=== PATIENT | male | born 1970 | race Caucasian/White ===

== ENCOUNTER 2017-02-09 10:43 | Emergency (ER) | payer OTHER ==
[2017-02-09 10:57] VITALS: RESP 16
--- NOTE | 2017-02-09 12:11 | XR ---
EXAMINATION TYPE: XR cervical spine comp DATE OF EXAM: 02/09/2017 TECHNIQUE: Frontal, lateral, oblique, and open mouth view of the cervical spine are obtained. HISTORY: Pain neck pain after injury COMPARISON: None FINDINGS: The cervical spine is visualized in its entirety from C1 thru the top of T1 level, there i s reversal of normal cervical curvature without evidence of acute fracture or dislocation. The pre-v ertebral soft tissue appears within normal limits. The C1-C2 articulation is within normal limits on the open mouth view. Vertebral body heights are maintained. There is moderate to severe multilevel spurring and disc space narrowing from C3-C4 through C7-T1 level. The oblique images are within normal limits. Overlying sof t tissue is unremarkable. IMPRESSION: No acute fracture or dislocation is seen in the cervical spine. Moderate to severe multi level degenerative change quite pronounced for patient's chronologic age.
--- NOTE | 2017-02-09 12:13 | XR ---
EXAMINATION TYPE: XR lumbosacral spine min 4V DATE OF EXAM: 02/09/2017 CLINICAL HISTORY: Low back pain after injury. TECHNIQUE: Frontal, lateral, and oblique images of the lumbar spine are obtained. COMPARISON: MRI lumbar spine November 22, 2013 FINDINGS: There are 5 lumbar type vertebral bodies identified. The lumbar spine redemonstrate sligh t dextroconvex scoliotic curvature centered in mid lumbar spine without evidence of acute displaced f racture. There is mild to moderate height loss at superior L2 endplate, this is at site of prior prom inent Schmorl node but this is more prominent versus MRI still favor chronic etiology. Remainder of v ertebral body heights and disc space heights are maintained. Mild multilevel anterior spurring is see n. Facet arthropathy lower lumbar levels is appreciated. Oblique images are within normal limits. Ove rlying soft tissue is unremarkable. IMPRESSION: Increasing mild to moderate compression deformity superior anterior L2 endplate is favore d chronic in etiology.
--- NOTE | 2017-02-09 12:26 | ED ---
General Adult HPI - General Chief complaint: Back Pain/Injury Stated complaint: back and neck pain Time Seen by Provider: 02/09/17 11:07 Source: patient, RN notes reviewed Mode of arrival: ambulatory Limitations: no limitations - History of Present Illness Initial comments: 46-year-old male presents for evaluation of neck and low back pain. Patient was carrying a a mattress and fell backwards onto his tailbone, he states the mattress to the time of his head and he is now complaining of neck pain. Patient denies any loss of consciousness. He is not on any blood thinners. Patient took one of his girlfriend's [place] last night with relief of his pain. He denies any changes to his daily. He denies any shooting pain down his arms or legs. Denies any bowel or bladder incontinence. Patient has no significant medical history and is not on any medication. - Related Data Home Medications Medication Instructions Recorded Confirmed HYDROcodone/APAP 10-325MG [[place] 1 tab PO ONCE PRN 02/09/17 02/09/17 10-325] Ibuprofen [Motrin] 400 mg PO Q6HR PRN 02/09/17 02/09/17 Multivitamins, Thera [Multivitamin 1 tab PO DAILY 02/09/17 02/09/17 (formulary)] Previous Rx's Medication Instructions Recorded HYDROcodone/APAP 5-325MG [[place] 1 tab PO Q6HR PRN #12 tab 02/09/17 5-325] Ibuprofen [Motrin] 600 mg PO Q8HR PRN #24 tab 02/09/17 Allergies Allergy/AdvReac Type Severity Reaction Status Date / Time tramadol HCl [From Ultram] AdvReac Itching Verified 02/09/17 11:50 Review of Systems ROS Statement: Those systems with pertinent positive or pertinent negative responses have been documented in the HPI. ROS Other: All systems not noted in ROS Statement are negative. Past Medical History Past Medical History: No Reported History Additional Past Medical History / Comment(s): chronic back pain, previous cocaine, heroin abuse History of Any Multi-Drug Resistant Organisms: None Reported Past Surgical History: Hernia Repair, Orthopedic Surgery Additional Past Surgical History / Comment(s): Right inguinal hernia repair, calcaneal fracture repair bilaterally Past Anesthesia/Blood Transfusion Reactions: No Reported Reaction Past Psychological History: No Psychological Hx Reported, Anxiety, Bipolar, Depression Smoking Status: Current every day smoker Past Alcohol Use History: Rare Past Drug Use History: None Reported - Past Family History Father Additional Family Medical History / Comment(s): Dad is alive at age 81 with hearing problems. Mother Additional Family Medical History / Comment(s): Mother at age 73 with history of multiple CVAs and diabetes. Brother(s) Additional Family Medical History / Comment(s): Ration has 3 brothers and one half-brother. One has history of HIV, one has been in [facility], one has history of rheumatic fever and bipolar. He states all brothers have history of substance abuse. Sister(s) Additional Family Medical History / Comment(s): Patient had 4 sisters. One at age 37 and had cerebral palsy and muscular dystrophy. One sister from alcoholism and drug abuse. He does not have any children. General Exam Limitations: no limitations General appearance: alert, in no apparent distress Head exam: Present: atraumatic, normocephalic Eye exam: Present: normal appearance, PERRL ENT exam: Present: normal exam, mucous membranes moist, TM's normal bilaterally Neck exam: Present: tenderness (Tenderness on the left cervical paraspinal muscles. No bony tenderness.), full ROM Respiratory exam: Present: normal lung sounds bilaterally. Absent: respiratory distress Cardiovascular Exam: Present: regular rate, normal rhythm GI/Abdominal exam: Present: soft. Absent: distended Extremities exam: Present: normal inspection, full ROM, tenderness (Tenderness at the left paraspinal muscles and over the coccyx. No external signs of trauma ) Back exam: Present: full ROM, tenderness, paraspinal tenderness Neurological exam: Present: alert, oriented X3, CN II-XII intact. Absent: motor sensory deficit Psychiatric exam: Present: normal affect, normal mood Skin exam: Present: warm, dry Course Vital Signs 02/09/17 10:54 Temperature 98.5 F Pulse Rate 79 Respiratory 16 Rate Blood Pressure 119/79 O2 Sat by Pulse 97 Oximetry Medical Decision Making - Medical Decision Making Procedure male presenting with low back pain and neck pain after minor trauma. Exam is unremarkable with exception of some minor tenderness to palpation over the left cervical paraspinal muscles and left lumbar spine. No concerning findings on neurologic examination. X-ray shows no acute fracture subluxation of the cervical or lumbar spine. No pain medication and encouraged follow-up with his primary care physician. Disposition Clinical Impression: Mechanical back pain, Strain of lumbar region Disposition: HOME SELF-CARE Condition: Good Instructions: Acute Low Back Pain (ED) Prescriptions: HYDROcodone/APAP 5-325MG [[place] 5-325] 1 tab PO Q6HR PRN #12 tab PRN Reason: Pain Ibuprofen [Motrin] 600 mg PO Q8HR PRN #24 tab PRN Reason: Pain Referrals: None,Stated [Primary Care Provider] - 1-2 days Gabby Butler MD [STAFF PHYSICIAN] - 1-2 days
[2017-02-09 12:54] VITALS: BP 121/78; PULSE 90; TEMP 97.9
== END 2017-02-09 12:54 | disposition home or self-care (01) ==
LOC: EC 10:43
DX: S39.012A Strain of muscle, fascia and tendon of lower back, initial encounter (principal); M54.2 Cervicalgia; F17.200 Nicotine dependence, unspecified, uncomplicated; Z88.5 Allergy status to narcotic agent; Z79.899 Other long term (current) drug therapy; W01.0XXA Fall on same level from slipping, tripping and stumbling without subsequent striking against object, initial encounter; Y93.89 Activity, other specified
CPT/HCPCS: 72050; 72110; 99283

== ENCOUNTER → 2017-03-29 | Outpatient (CLI) | payer OTHER ==
--- NOTE | 2017-03-29 13:24 | MR ---
EXAMINATION TYPE: MR cspine/lspine wo con DATE OF EXAM: 03/29/2017 COMPARISON: Prior cervical and lumbar spine dated 11/22/2013 HISTORY: Neck and low back pain TECHNIQUE: Multiplanar, multisequence imaging of the lumbar and cervical spine is performed without I V contrast. FINDINGS: Cervical spine: Suspect there is a spinal curvature in the cervical spine and thoracic spine. Cervica l vertebral bodies show stable height, alignment, and bone marrow signal. Endplate discogenic marrow signal change, underlying lordosis, loss of disc height and signal at the intervertebral levels is ag ain noted as on previous exam. Minimal anterolisthesis grade 1 C7-T1. Cervical cord signal is maintai rosalie. C2-3: Small central posterior disc herniation causes slight anterior mass effect on the thecal sac. N o significant foraminal encroachment or spinal stenosis C3-4: Bilateral foraminal encroachment due to lateral extension of endplate disc complexes, posterior extension of endplate disc complex results in mild to moderate central stenosis. There is anterior m ass effect on the thecal sac. There may be cord contact due to posterior central disc herniation as o n prior. C4-5: Foraminal encroachment is present left greater than right due to lateral extension of endplate disc complex. Posterior extension of endplate disc complex slightly eccentric towards the left causin g anterolateral mass effect on the thecal sac, only mild stenosis. C5-6: Right posterior paracentral disc herniation causes anterolateral mass effect on the thecal sac and there is some neural foraminal encroachment on the right greater than left due to lateral extensi on endplate disc complex. C6-7: Left-sided foraminal encroachment greater than right is present due to lateral extension endpla te disc complex. No significant central stenosis. C6-7: Listhesis contributes with lateral extension endplate disc complex to cause bilateral foraminal encroachment. No significant central stenosis. IMPRESSION: Degenerative disc disease, multilevel foraminal encroachment as described and similar to prior exam. Lumbar spine MRI: Sagittal images of the lumbar spine show vertebral body heights and alignment to [place] stable, there is a dextroscoliosis centered at the lower lumbar spine. The intervertebral discs demonstrate stable appearance, there is multilevel spondylosis with endplate discogenic marrow signal change and loss of disc height and signal at the intervertebral levels especially L3-4, L2-3 and L1- 2, Schmorl's node is present at the superior endplate of L2 as on prior exam. Interval formation of S chmorl's node superior endplate L3.. The conus medullaris is normal in position and signal. Axial images show no focal disc disease, or foraminal encroachment at L5-S1. There is no significant central stenosis. Facet arthropathy changes are present L4-5: There is no spinal canal stenosis, neural foraminal narrowing, or evidence of nerve root compro mise. L3-4: Posterior broad-based disc bulge causes mild anterior mass effect on the thecal sac. No signifi cant central stenosis or foraminal encroachment. L2-3: Broad-based posterior disc bulge causes mild anterior mass effect on the thecal sac. No signifi cant foraminal encroachment or central stenosis. Mild anterior wedging of L2 vertebral body is stable . L1-2: Broad-based posterior disc bulge causes mild anterior mass effect on the thecal sac. No signifi cant central stenosis or foraminal encroachment T12-L1: Within normal limits IMPRESSION: Mild degenerative disc disease. Spinal curvature is again noted. Additional findings abov e.
== END | disposition home or self-care (01) ==
LOC: RADMRIMAIN 12:14
PROVIDERS: ATTEND Internal Medicine
DX: M50.30 Other cervical disc degeneration, unspecified cervical region (principal); M51.36 Other intervertebral disc degeneration, lumbar region
CPT/HCPCS: 72141; 72148

== ENCOUNTER 2017-06-01 16:40 | Inpatient (IN) | payer MEDICAID, OTHER ==
--- NOTE | 2017-06-01 17:37 | ED ---
Psych HPI - General Chief Complaint: Psychiatric Symptoms Stated Complaint: Mental Health Time Seen by Provider: 06/01/17 17:04 Source: patient, RN notes reviewed, old records reviewed Mode of arrival: ambulatory - History of Present Illness Initial Comments: 47-year-old male recently admitted to 3 . chief complaint of worsening suicidal thoughts, and paranoia. Patient reports that he was discharged and has been taking his medications. Patient reports that since then he has had increased nightmares, resulting from PTSD. Patient has been having difficulty sleeping. He reports he wakes up with severe nightmares. Patient states that he's had thoughts of going to his friend's house whom he knows has a lot of guns. He reports that he wants to go over there and take a gun and shoot himself. Patient states that he also occasionally hears voices and sees " shadow people". Patient reports that he lives by himself. He reports that his neighbor encouraged him to come here she felt like he was just not acting appropriate. Patient reports that he has followed up with [facility] since being discharged. He states that he has done his initial intake. Heme reports that he called them prior to coming here. - Related Data Home Medications Medication Instructions Recorded Confirmed Buprenorphine HCl/Naloxone HCl 0.25 film SL HS@2200 PRN 05/21/17 06/01/17 [Suboxone 8 mg-2 mg Sl Film] Buprenorphine HCl/Naloxone HCl 1 film SL BID@0900,1800 05/21/17 06/01/17 [Suboxone 8 mg-2 mg Sl Film] Ibuprofen [Motrin] 800 mg PO BID@0900,1800 05/21/17 06/01/17 Ibuprofen [Motrin] 800 mg PO DAILY PRN 05/21/17 06/01/17 Multivitamins, Thera [Multivitamin 1 tab PO DAILY 05/21/17 06/01/17 (formulary)] tiZANidine [Zanaflex] 4 mg PO BID PRN 05/21/17 06/01/17 HYDROcodone/APAP 5-325MG [[place] 1 tab PO Q8H PRN 06/01/17 06/01/17 5-325] Previous Rx's Medication Instructions Recorded DULoxetine HCL [Cymbalta] 60 mg PO DAILY #30 capsule. 05/25/17 Nicotine 14Mg/24Hr Patch [Habitrol] 1 patch TRANSDERM Q24H #30 patch 05/25/17 Prazosin [Minipress] 1 mg PO HS #30 cap 05/25/17 QUEtiapine [SEROquel] 300 mg PO HS #90 tab 05/25/17 clonazePAM [KlonoPIN] 1 mg PO BID PRN #6 tab 05/25/17 Allergies Allergy/AdvReac Type Severity Reaction Status Date / Time tramadol HCl [From Ultram] AdvReac Itching Verified 06/01/17 17:39 Review of Systems ROS Statement: Those systems with pertinent positive or pertinent negative responses have been documented in the HPI. ROS Other: All systems not noted in ROS Statement are negative. Past Medical History Past Medical History: No Reported History Additional Past Medical History / Comment(s): chronic back pain, previous cocaine, heroin abuse History of Any Multi-Drug Resistant Organisms: None Reported Past Surgical History: Hernia Repair, Orthopedic Surgery Additional Past Surgical History / Comment(s): Right inguinal hernia repair, calcaneal fracture repair bilaterally Past Anesthesia/Blood Transfusion Reactions: No Reported Reaction Past Psychological History: Anxiety, Bipolar, Depression, PTSD Smoking Status: Current every day smoker Past Alcohol Use History: Rare Past Drug Use History: None Reported - Past Family History Father Additional Family Medical History / Comment(s): Dad is alive at age 81 with hearing problems. Mother Additional Family Medical History / Comment(s): Mother at age 73 with history of multiple CVAs and diabetes. Brother(s) Additional Family Medical History / Comment(s): Ration has 3 brothers and one half-brother. One has history of HIV, one has been in longterm, one has history of rheumatic fever and bipolar. He states all brothers have history of substance abuse. Sister(s) Additional Family Medical History / Comment(s): Patient had 4 sisters. One at age 37 and had cerebral palsy and muscular dystrophy. One sister from alcoholism and drug abuse. He does not have any children. General Exam - General Exam Comments Initial Comments: This is a 47-year-old male. No acute distress. Limitations: no limitations General appearance: alert, in no apparent distress Head exam: Present: atraumatic, normocephalic, normal inspection Eye exam: Present: normal appearance, PERRL, EOMI. Absent: scleral icterus, conjunctival injection, periorbital swelling ENT exam: Present: normal exam, mucous membranes moist Neck exam: Present: normal inspection. Absent: tenderness, meningismus, lymphadenopathy Respiratory exam: Present: normal lung sounds bilaterally. Absent: respiratory distress, wheezes, rales, rhonchi, stridor Cardiovascular Exam: Present: regular rate, normal rhythm, normal heart sounds. Absent: systolic murmur, diastolic murmur, rubs, gallop, clicks GI/Abdominal exam: Present: soft, normal bowel sounds. Absent: distended, tenderness, guarding, rebound, rigid Extremities exam: Present: normal inspection, full ROM, normal capillary refill. Absent: tenderness, pedal edema, joint swelling, calf tenderness Back exam: Present: normal inspection Neurological exam: Present: alert, oriented X3, CN II-XII intact Psychiatric exam: Present: depressed, flat affect, suicidal ideation (Patient reports he's had increased suicidal thoughts. He reports he will go over to his neighbor's house whom has a gun and wants to shoot himself.). Absent: normal affect, normal mood Skin exam: Present: warm, dry, intact, normal color. Absent: rash Course Vital Signs 06/01/17 17:05 Temperature 98.1 F Pulse Rate 78 Respiratory 20 Rate Blood Pressure 104/63 O2 Sat by Pulse 100 Oximetry Medical Decision Making - Medical Decision Making 47-year-old male with chief complaint of suicidal ideation. He also reports he' s had increased paranoia, hearing voices. Patient does not respond to any internal stimuli on exam itself. He does report that if he goes home he feels like he would take his friend's gun and shoot himself. Patient has medically clear. Patient was evaluated by EPS. Patient will be admitted to the hospital for inpatient psychiatric treatment. Disposition Clinical Impression: Suicidal ideation, Post traumatic stress disorder (PTSD), Paranoia Disposition: ADMITTED IP TO THIS HOSP Condition: Stable Referrals: Ruthy David MD [Primary Care Provider] - 1-2 days Time of Disposition: 19:18
[2017-06-01] MEDS ORDERED: MAGNESIUM HYDROXIDE 2,400 MG/10 ML CUP PO PRN (19:49)
[2017-06-01] MEDS ORDERED: MAG HYDROX/AL HYDROX/SIMETH 30 ML CUP PO PRN (19:49)
[2017-06-01] MEDS ORDERED: ACETAMINOPHEN TAB 325 MG TAB PO PRN (19:49)
[2017-06-01 20:08] LABS: Appearance,Urine Clear (Clear); Bilirubin,Urine Negative (Negative); Glucose,Urine (UA) Negative (Negative); Ketones,Urine Negative (Negative); Leukocyte Esterase,Urine Negative (Negative); Nitrite,Urine Negative (Negative); PH, Urine 5.5 (5.0-8.0); Protein,Urine Negative (Negative); Specific Gravity,Urine 1.003 (1.001-1.035); UA Billing (MACRO vs. MICRO) CHEM; Urobilinogen,Urine <2.0 mg/dL (<2.0)
[2017-06-01] MEDS ORDERED: QUEtiapine 100 MG TAB PO SCH (21:00)
[2017-06-01] MEDS ORDERED: PRAZOSIN 1 MG CAP PO SCH (21:00)
[2017-06-01] MEDS: clonazePAM 1 MG TAB PO PRN (21:17)
[2017-06-01] MEDS: HYDROcodone/APAP 5-325MG 1 EACH TAB PO PRN (21:18)
[2017-06-02 08:07] LABS: Basophils % (A) 1 %; CH 31.6; CHCM 33.1; Eosinophils # (A) 0.2 k/uL (0-0.7); Eosinophils % (A) 6 %; HCT 41.9 % (39.0-53.0); HDW 2.52; HGB 13.7 gm/dL (13.0-17.5); Luc % (Auto) 3; Lymphocytes # (A) 1.7 k/uL (1.0-4.8); Lymphocytes % (A) 48 %; MCH 31.4 pg (25.0-35.0); MCHC 32.7 g/dL (31.0-37.0); Mean Platelet Volume 6.5; Monocytes # (A) 0.2 k/uL (0-1.0); Monocytes % (A) 6 %; Neutrophils # (A) 1.3 k/uL (1.3-7.7); Neutrophils % (A) 37 %; RBC 4.37 m/uL (4.30-5.90); RDW 13.8 % (11.5-15.5); WBC 3.5 k/uL (3.8-10.6); WBC (Perox) 3.55
[2017-06-02 08:26] LABS: ALT 50 U/L (21-72); AST 35 U/L (17-59); Alkaline Phosphatase 53 U/L (38-126); Anion Gap 6 mmol/L; Blood Urea Nitrogen 9 mg/dL (9-20); Calcium 8.9 mg/dL (8.4-10.2); Carbon Dioxide 28 mmol/L (22-30); Chloride 107 mmol/L (98-107); Cholesterol 175 mg/dL (<200); Glucose 96 mg/dL (74-99); HDL Cholesterol 55 mg/dL (40-60); Non-African American GFR(MDRD) >60 (>60 ml/min/1.73 sqM); Potassium 3.9 mmol/L (3.5-5.1); Sodium 141 mmol/L (137-145); Total Bilirubin 0.5 mg/dL (0.2-1.3)
[2017-06-02] MEDS: IBUPROFEN 800 MG TAB PO SCH ×2 (08:44→17:39)
[2017-06-02] MEDS: NICOTINE 14MG/24HR PATCH TRANSDERM SCH (08:44)
[2017-06-02] MEDS: HYDROcodone/APAP 5-325MG 1 EACH TAB PO PRN ×2 (08:46→16:34)
[2017-06-02] MEDS: clonazePAM 1 MG TAB PO PRN (08:48)
[2017-06-02] MEDS ORDERED: DULoxetine HCL 60 MG CAPSULE.DR PO SCH (09:00)
[2017-06-02] MEDS ORDERED: PNEUMOCOCCAL VACC-PNEUMOVAX 23 25 MCG/0.5 ML VIAL IM ONE (11:30)
[2017-06-02] MEDS ORDERED: INFLUENZA VACCINE (6 MOS+) 60 MCG/0.5 ML SYRINGE IM ONE (11:30)
[2017-06-02 11:41] VITALS: BMI 24.3
[2017-06-02] MEDS: MULTIVITAMINS, THERA 1 EACH TAB PO SCH (12:19)
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
[2017-06-02] MEDS: GABAPENTIN 100 MG CAP PO SCH ×2 (16:31→20:55)
[2017-06-02] MEDS: PRAZOSIN 1 MG CAP PO SCH (20:55)
[2017-06-02] MEDS: QUEtiapine 400 MG TAB PO SCH (20:55)
[2017-06-02] MEDS: DULoxetine HCL 60 MG CAPSULE.DR PO SCH (20:55)
[2017-06-03] MEDS: GABAPENTIN 100 MG CAP PO SCH ×3 (09:02→21:18)
[2017-06-03] MEDS: NICOTINE 14MG/24HR PATCH TRANSDERM SCH (09:02)
[2017-06-03] MEDS: IBUPROFEN 800 MG TAB PO SCH ×3 (09:02→21:18)
[2017-06-03] MEDS: DULoxetine HCL 60 MG CAPSULE.DR PO SCH ×2 (09:03→21:18)
[2017-06-03] MEDS: clonazePAM 1 MG TAB PO PRN (09:05)
[2017-06-03] MEDS: HYDROcodone/APAP 5-325MG 1 EACH TAB PO PRN (09:05)
[2017-06-03] MEDS: MULTIVITAMINS, THERA 1 EACH TAB PO SCH (12:32)
[2017-06-03] MEDS ORDERED: QUEtiapine 100 MG TAB PO STA (12:33)
[2017-06-03] MEDS: clonazePAM 0.5 MG TAB PO PRN (12:58)
[2017-06-03] MEDS: QUEtiapine 100 MG TAB PO SCH (15:49)
--- NOTE | 2017-06-03 17:30 | PN ---
PROGRESS NOTE DATE OF SERVICE: 06/03/2017. CHIEF COMPLAINT: The patient was admitted due to a increasing problems with depression. He had suicide thoughts. He had nightmares. He was reporting PTSD symptoms. He talked about wanting to take a gun and shoot himself. INTERVAL HISTORY: Patient has been doing fair. He had a quiet evening last night. He slept fairly well. He says he still has the nightmares where he wakes up in the middle of the night and feels that the things he is dreaming about are actually real. He talked about feeling covered with blood and believing that when he woke up, he actually saw himself that way. He notes that when he was hospitalized in June 2015 that following discharge he thought medications were helpful. He does talk quite a bit about how he had gotten on opioid pain medications prescribed by a family doctor. He said he really did not want the pain medications though he ended up continuing them over a few months. He ultimately went on Suboxone. He has a past history of significant substance abuse problems including IV opioids. The has had significant substance abuse intervention in the past. He notes that he continues to get some anxiety. He will get panic attacks sometimes when he wakes up from his dreams. He has been doing fairly well on the unit. He attends groups. He interacts some with others. He has not had change in his general health. He appears to tolerate his psychotropic medications. It is noteworthy that he has been continued on Cymbalta 120 mg a day which he was taking when he was discharged in June of 2015. He was also discharged on Seroquel 300 mg a day. He now continues on 400 mg a day. He had been on a higher dose of Klonopin and at that time was also prescribed Twining. MENTAL STATUS: The patient gave good eye contact. Psychomotor activity was a little restless. Speech was clear. He answered questions with direct responses. His affect was a little constricted. His mood was quiet. He did not appear to be significantly distressed. ASSESSMENT: I will continue the current diagnosis and treatment plan. I will continue Seroquel though I will increase the dose to 100 mg twice a day plus his current 400 mg at bedtime. I will reduce his Klonopin from 1 mg b.i.d. p.r.n. to 0.5 mg b.i.d. p.r.n. We discussed the plan of tapering him off of Klonopin altogether. I would also look to possibly taper him off of Twining as well. I had an extensive discussion with the patient regarding withdrawal issues. The patient has taken opioid pain medications for chronic back pain. We discussed the issues really relating to nonpharmacologic intervention for chronic pain. I will start the patient on Tofranil 25 mg at bedtime. The patient appears to be having nightmares that relate to decreased REM latency. The addition of Tofranil is aimed at increasing REM latency to normalize sleep architecture. He says that at this point, he is not fully sure that he has gotten much benefit out of Minipress. It is noteworthy that Tofranil may reduce some EPS symptoms if that is showing up at all relating to his surgical therapy, I will get an EKG because of possible concerns for increased QRS. Overall, the patient does appear to be improving. As far as mood will continue to focus on stabilization and discharge planning. VERONICA / KEIRY: [id number] /
[2017-06-03] MEDS: QUEtiapine 400 MG TAB PO SCH (21:18)
[2017-06-03] MEDS: PRAZOSIN 1 MG CAP PO SCH (21:18)
[2017-06-03] MEDS: IMIPRAMINE 25 MG TAB PO SCH (21:18)
[2017-06-04] MEDS: NICOTINE 14MG/24HR PATCH TRANSDERM SCH (09:18)
[2017-06-04] MEDS: GABAPENTIN 100 MG CAP PO SCH ×3 (09:19→20:54)
[2017-06-04] MEDS: DULoxetine HCL 60 MG CAPSULE.DR PO SCH ×2 (09:19→20:54)
[2017-06-04] MEDS: QUEtiapine 100 MG TAB PO SCH (09:19)
[2017-06-04] MEDS: IBUPROFEN 800 MG TAB PO SCH ×3 (09:19→20:54)
[2017-06-04] MEDS: clonazePAM 0.5 MG TAB PO PRN (09:21)
[2017-06-04] MEDS: MULTIVITAMINS, THERA 1 EACH TAB PO SCH (11:23)
[2017-06-04] MEDS: clonazePAM 0.5 MG TAB PO SCH ×2 (15:12→20:53)
[2017-06-04] MEDS: PRAZOSIN 1 MG CAP PO SCH (20:53)
[2017-06-04] MEDS: IMIPRAMINE 25 MG TAB PO SCH (20:54)
[2017-06-04] MEDS: QUEtiapine 400 MG TAB PO SCH (20:54)
[2017-06-04] MEDS: HYDROcodone/APAP 5-325MG 1 EACH TAB PO PRN (20:56)
--- NOTE | 2017-06-05 07:33 | PN ---
PROGRESS NOTE DATE OF SERVICE: 06/04/2017 CHIEF COMPLAINT: The patient was admitted due to increasing problems with depression. He had suicide thoughts. He had nightmares. He was reporting PTSD symptoms. He talked about wanting to take a gun and shoot himself. INTERVAL HISTORY: Patient has been doing fair. He had a quiet evening last night. He said he had periods where he seemed to sleep quite deeply. He did wake up at different times and felt quite groggy. He said that he had at least one time through the night where he woke up with visions of blood on him. Today he has been up and about. He comes out in the day area. He interacts with others. He has been appropriate. He says that he does not like the daytime Seroquel because it makes him feel groggy and he gets a little unsteady. He was wanting to go back up on his Ativan to the previous dose. He notes that he has plans to get back on Suboxone once he returns to follow up with his primary care physician. He was not too insightful as it relates to long-term use of Klonopin in relationship to his history of significant substance use issues. He has not had change in his general health. He tolerates his psychotropic medications. MENTAL STATUS: Patient gave good eye contact. Psychomotor activity was a little restless. Speech was clear. He was spontaneous and interactive. His affect was a little constricted. His mood was quiet. He did not appear to be significantly distressed. ASSESSMENT: I will continue the current diagnosis and treatment plan. I will increase his Klonopin to 0.5 mg t.i.d. which is 0.5 mg less than what he had previously been on. We had extensive discussion about the importance of his tapering off of Klonopin and not being on Klonopin long-term. We also talked about long-term use of Suboxone. We discussed chronic pain issues and alternative treatments to opioid pain medications. I will discontinue the daytime Seroquel that he received yesterday. He will continue the Tofranil which was started yesterday. The patient was in agreement with the plan and did not voice any negative thoughts about the treatment plan. We will continue to focus on stabilization and discharge planning. MMODL / IJN: [id number] /
[2017-06-05] MEDS: IBUPROFEN 800 MG TAB PO SCH ×3 (09:03→21:06)
[2017-06-05] MEDS: clonazePAM 0.5 MG TAB PO SCH ×3 (09:03→21:06)
[2017-06-05] MEDS: NICOTINE 14MG/24HR PATCH TRANSDERM SCH (09:03)
[2017-06-05] MEDS: GABAPENTIN 100 MG CAP PO SCH ×3 (09:03→21:06)
[2017-06-05] MEDS: MULTIVITAMINS, THERA 1 EACH TAB PO SCH (09:03)
[2017-06-05] MEDS: DULoxetine HCL 60 MG CAPSULE.DR PO SCH ×2 (09:03→21:06)
[2017-06-05] MEDS: HYDROcodone/APAP 5-325MG 1 EACH TAB PO PRN ×2 (09:05→16:09)
--- NOTE | 2017-06-05 20:41 | PN ---
PROGRESS NOTE DATE OF SERVICE: 06/05/17. CHIEF COMPLAINT: The patient was admitted due to increasing problems with depression. He had suicide thoughts. He had nightmares. He was reporting PTSD symptoms. He talked about wanting to take a gun and shoot himself. INTERVAL HISTORY: The patient has been doing fairly well. He had a quiet evening last night. He slept well. Today he has been up and about. He comes out in the day area. He interacts with others. He has been appropriate in his function and behavior. He keeps himself neatly groomed. He seems to be fairly social with other patients. He says that overall things seem to be somewhat better for him. He notes that he still feels some grogginess, which he attributes to the additional doses of Seroquel. He said he does feel it is wearing off and that maybe he just has some persistence from the extra Seroquel he received on Tuesday. In regards to sleep issues he notes that he woke up twice last night seen blood, however, he said that the thoughts cleared more quickly than it had been and he was able to get back to sleep. His mood is improved. He has not had change in his general health. He tolerates his psychotropic medications. MENTAL STATUS: Patient gave good eye contact. Psychomotor activity was a little restless. Speech was clear. Affect was a little constricted. Mood was quiet. He did not appear to be distressed. ASSESSMENT: I will continue the current diagnosis and treatment plan. I discussed with the patient that it does appear he may be getting benefits from Tofranil and that he may be showing less of decreased REM latency as reflected by his being able to come out of his dream states quicker after waking up. I would look for some continued improvement in this regard. He may need a dose increase in Tofranil though giving him a few more days on the current 25 mg dose may be sufficient to have his sleep function stabilized. The patient talked about the idea that he is a little apprehensive about being discharged until he is sure things are a little more stable for him as he does not want to leave the hospital in the state that he did before, only to return in short order. We will continue to focus on stabilization and discharge planning. MMJORGE LL / IJN: [id number] /
[2017-06-05] MEDS: PRAZOSIN 1 MG CAP PO SCH (21:05)
[2017-06-05] MEDS: QUEtiapine 400 MG TAB PO SCH (21:05)
[2017-06-05] MEDS: IMIPRAMINE 25 MG TAB PO SCH (21:06)
[2017-06-06] MEDS: HYDROcodone/APAP 5-325MG 1 EACH TAB PO PRN ×3 (05:20→21:41)
[2017-06-06 05:29] VITALS: TEMP 97.6
[2017-06-06] MEDS: NICOTINE 14MG/24HR PATCH TRANSDERM SCH (08:52)
[2017-06-06] MEDS: IBUPROFEN 800 MG TAB PO SCH ×3 (08:53→21:38)
[2017-06-06] MEDS: clonazePAM 0.5 MG TAB PO SCH ×3 (08:53→21:35)
[2017-06-06] MEDS: GABAPENTIN 100 MG CAP PO SCH ×3 (08:53→21:33)
[2017-06-06] MEDS: DULoxetine HCL 60 MG CAPSULE.DR PO SCH ×2 (08:53→21:38)
[2017-06-06] MEDS: MULTIVITAMINS, THERA 1 EACH TAB PO SCH (12:14)
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
[2017-06-06] MEDS: QUEtiapine 400 MG TAB PO SCH (21:34)
[2017-06-06] MEDS: PRAZOSIN 1 MG CAP PO SCH (21:34)
[2017-06-06] MEDS: IMIPRAMINE 25 MG TAB PO SCH (21:34)
[2017-06-06 22:25] VITALS: PULSE 101
[2017-06-07 07:04] VITALS: BP 102/74; RESP 14
[2017-06-07] MEDS: NICOTINE 14MG/24HR PATCH TRANSDERM SCH (09:04)
[2017-06-07] MEDS: IBUPROFEN 800 MG TAB PO SCH (09:04)
[2017-06-07] MEDS: GABAPENTIN 100 MG CAP PO SCH (09:04)
[2017-06-07] MEDS: clonazePAM 0.5 MG TAB PO SCH (09:04)
[2017-06-07] MEDS: DULoxetine HCL 60 MG CAPSULE.DR PO SCH (09:06)
[2017-06-07] MEDS: HYDROcodone/APAP 5-325MG 1 EACH TAB PO PRN (09:06)
[2017-06-07] MEDS: MULTIVITAMINS, THERA 1 EACH TAB PO SCH (12:01)
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
--- NOTE | 2017-06-07 20:16 | P.PN ---
Progress Note - Text Progress Note Date: 06/07/17 Pt is a 47yo CM who was admitted on 06/01/17 due to suicidal thoughts Last 24hrs: Upon approach this morning during rounds, he states that his mood is "better...I'm more able to cope and things are more manageable". He reports that his nightmares are improved with the addition of Tofranil and actually had a pleasant dream last night. Still voices some concern about anxiety as he feels Klonopin works the best for him. Discussed the risks associated with long -term use of this medication and the use of antidepressants and alternate medications such as Gabapentin for long-term coverage of anxiety. Patient has behaved well on the unit. He is attending group activities regularly. Continues to deny SI. Compliant with medications and no reported adverse effects. MSE: Pt is a 47yo well-groomed male who appears stated age. He is cooperative and pleasant. Speech is spontaneous with normal rate and volume. He is verbose. Mood is euthymic and affect appropriate. Not reporting SI and HI at this time. No reported AVH. Thought process is linear and logical. AAO x 3. Memory grossly intact. Judgment and insight is fair. ASSESSMENT: 1. Bipolar II DO 2. PTSD 3. Opiate Use Disorder, in partial remission 4. Anxiety Disorder unspecified PLAN: Continue medications as prescribed. Pt prescribed Clonazepam 1mg BID #15 day supply on 05/28 by his PCP. Therefore should have enough to last until his f/u appointment with Dr. David on 06/09 especially with decrease in dose to 0.5 TID. Discharge today.
--- NOTE | 2017-06-27 21:13 | P.DS ---
Providers Date of admission: 06/01/17 19:16 Expected date of discharge: 06/07/17 Attending physician: Twan Moya, Consults: 06/01/17 19:49 Consult Physician Routine Consulting Provider: Samira Noel Consult Reason/Comments: follow up H & P Do you want consulting provider notified?: Yes Primary care physician: Joann Bliss - Discharge Diagnosis(es) (1) Anxiety disorder, unspecified Status: Acute (2) Bipolar II disorder Status: Acute (3) Opioid use disorder, mild, in controlled environment Status: Acute (4) Post traumatic stress disorder (PTSD) Status: Chronic Priority: Medium Hospital Course: Upon admission patient reported continued sleep disturbance with increased night terrors and increased frequency of panic attacks. He stated that he did have SI prior to admission but denied these thoughts on admission. Given his reported symptoms, his Seroquel was increased to 400mg QHS, Cymbalta to 60mg BID , Prazosin to 2mg QHS. His Klonopin was continued at 1mg BID as previously prescribed and he was started on Gabapentin 100mg TID. By hospital day 2, patient was seen by Dr. Booth (covering for this provider). Patient's Klonopin was decreased to 0.5mg BID PRN in an effort to begin tapering off this medication due to associated cognitive and addictive effects of long-term use of benzodiazepines. He was started on Seroquel 100mg BID for further coverage of anxiety in addition to bedtime dose of Seroquel already prescribed. Also started on Tofranil 25mg QHS to increase REM latency and normalize sleep architecture. An EKG was obtained to monitor patient's QTc given the use of antipsychotics. QTc was 416. By day 3 of hospitalization patient c/o grogginess and a feeling of being unsteady with use of daytime Seroquel. Therefore this was discontinued and patient's Klonopin was increased to 0.5mg TID. On day of discharge patient reported that his mood was "better...I'm more able to cope and things are more manageable". He reported that his nightmares are improved with the addition of Tofranil and actually had a pleasant dream last night. Still voiced some concern about anxiety as he feels Klonopin works the best for him. Discussed the risks associated with long-term use of this medication and the use of antidepressants and alternate medications such as Gabapentin for long-term coverage of anxiety. Patient was well behaved on the unit. He attended group activities regularly. Continued to deny SI. Compliant with medications and no reported adverse effects. The importance of therapy was expressed to patient and he was advised to look into the possibility of initiating exposure therapy for PTSD. Patient Condition at Discharge: Stable Plan - Discharge Summary Discharge Rx Participant: No New Discharge Prescriptions: New clonazePAM [KlonoPIN] 0.5 mg PO TID tab DULoxetine HCL [Cymbalta] 60 mg PO BID #60 capsule. Gabapentin [Neurontin] 100 mg PO TID #90 cap Imipramine [Tofranil] 25 mg PO HS #30 tab Prazosin [Minipress] 2 mg PO HS #60 cap QUEtiapine [SEROquel] 400 mg PO HS #30 tab Continue Ibuprofen [Motrin] 800 mg PO BID@0900,1800 Buprenorphine HCl/Naloxone HCl [Suboxone 8 mg-2 mg Sl Film] 0.25 film SL HS@ 2200 PRN PRN Reason: Pain Buprenorphine HCl/Naloxone HCl [Suboxone 8 mg-2 mg Sl Film] 1 film SL BID@ 0900,1800 tiZANidine [Zanaflex] 4 mg PO BID PRN PRN Reason: Pain Ibuprofen [Motrin] 800 mg PO DAILY PRN PRN Reason: Pain Multivitamins, Thera [Multivitamin (formulary)] 1 tab PO DAILY Nicotine 14Mg/24Hr Patch [Habitrol] 1 patch TRANSDERM Q24H #30 patch Discontinued DULoxetine HCL [Cymbalta] 60 mg PO DAILY #30 capsule. Prazosin [Minipress] 1 mg PO HS #30 cap QUEtiapine [SEROquel] 300 mg PO HS #90 tab HYDROcodone/APAP 5-325MG [[place] 5-325] 1 tab PO Q8H PRN PRN Reason: Moderate Pain clonazePAM [KlonoPIN] 1 mg PO BID Discharge Medication List Buprenorphine HCl/Naloxone HCl [Suboxone 8 mg-2 mg Sl Film] 0.25 film SL HS@ 2200 PRN 05/21/17 [History] Buprenorphine HCl/Naloxone HCl [Suboxone 8 mg-2 mg Sl Film] 1 film SL BID@0900, 1800 05/21/17 [History] Ibuprofen [Motrin] 800 mg PO BID@0900,1800 05/21/17 [History] Ibuprofen [Motrin] 800 mg PO DAILY PRN 05/21/17 [History] Multivitamins, Thera [Multivitamin (formulary)] 1 tab PO DAILY 05/21/17 [History ] tiZANidine [Zanaflex] 4 mg PO BID PRN 05/21/17 [History] Nicotine 14Mg/24Hr Patch [Habitrol] 1 patch TRANSDERM Q24H #30 patch 05/25/17 [ Rx] DULoxetine HCL [Cymbalta] 60 mg PO BID #60 capsule. 06/07/17 [Rx] Gabapentin [Neurontin] 100 mg PO TID #90 cap 06/07/17 [Rx] Imipramine [Tofranil] 25 mg PO HS #30 tab 06/07/17 [Rx] Prazosin [Minipress] 2 mg PO HS #60 cap 06/07/17 [Rx] QUEtiapine [SEROquel] 400 mg PO HS #30 tab 06/07/17 [Rx] clonazePAM [KlonoPIN] 0.5 mg PO TID tab 06/07/17 [Rx] Follow up Appointment(s)/Referral(s): [facility] [Outside] - 06/10/17 11:00 am (06-10-17 @ 11:00 with Dara Joy 06-10-17 @ 12:[address] Cristina) Ruthy David MD [Primary Care Provider] - 1-2 days (06/09/17 at 9:50am with Dr. David) Patient Instructions/Handouts: How to Stop Smoking (GEN) Activity/Diet/Wound Care/Special Instructions: Instructions: Patient has some Clonazepam 1mg left from prior prescription by his PCP, Dr. David. He can take 1/2 tablet three times daily as needed for anxiety and f/u with Dr. David as already scheduled on 06/09. Would recommend eventually tapering off of Clonazepam once more stable on antidepressants and Gabapentin for treatment of anxiety as benzodiazepines are not indicated for long-term treatment of anxiety. Also, recommend patient initiate treatment in Cognitive Behavioral Therapy to help in improving his anxiety and PTSD symptoms. Discharge Disposition: HOME SELF-CARE
== END 2017-06-07 15:15 | disposition home or self-care (01) | DRG 753 ==
LOC: EC 16:40 → 3MHU 19:16
PROVIDERS: ADMIT Psychiatry & Neurology Psychiatry; ATTEND Psychiatry & Neurology Psychiatry
DX: F31.81 Bipolar II disorder (principal); R45.851 Suicidal ideations; F22 Delusional disorders; F43.10 Post-traumatic stress disorder, unspecified; F11.90 Opioid use, unspecified, uncomplicated; Z62.810 Personal history of physical and sexual abuse in childhood; B19.20 Unspecified viral hepatitis C without hepatic coma; F60.9 Personality disorder, unspecified; F41.0 Panic disorder [episodic paroxysmal anxiety]; G89.29 Other chronic pain; G47.00 Insomnia, unspecified; F17.200 Nicotine dependence, unspecified, uncomplicated; Z83.3 Family history of diabetes mellitus; Z83.0 Family history of human immunodeficiency virus [HIV] disease; Z91.410 Personal history of adult physical and sexual abuse; Z65.3 Problems related to other legal circumstances; Z81.8 Family history of other mental and behavioral disorders; Z79.899 Other long term (current) drug therapy; Z79.1 Long term (current) use of non-steroidal anti-inflammatories (NSAID); Z88.8 Allergy status to other drugs, medicaments and biological substances
CPT/HCPCS: 80053; 80061; 80306; 81003; 82075; 83036; 84439; 84443; 85025; 90686; 90732; 93005; 99285

== ENCOUNTER 2017-06-09 13:22 | Emergency (ER) | payer MEDICAID, OTHER ==
[2017-06-09 13:50] VITALS: BP 126/79; PULSE 96; RESP 18; TEMP 99
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
== END 2017-06-09 14:23 | disposition home or self-care (01) ==
LOC: EC 13:22
DX: Z76.0 Encounter for issue of repeat prescription (principal); F41.9 Anxiety disorder, unspecified; R45.1 Restlessness and agitation; G89.29 Other chronic pain; F17.200 Nicotine dependence, unspecified, uncomplicated; Z79.1 Long term (current) use of non-steroidal anti-inflammatories (NSAID); Z79.891 Long term (current) use of opiate analgesic; Z79.899 Other long term (current) drug therapy; Z88.5 Allergy status to narcotic agent
CPT/HCPCS: 99282

== ENCOUNTER 2017-09-01 16:44 | Emergency (ER) | payer MEDICAID, OTHER ==
[2017-09-01 16:51] VITALS: BP 129/82; PULSE 108; TEMP 97.4
[2017-09-01] MEDS ORDERED: KETOROLAC 30 MG/ML 1 ML VIAL IM STA (17:22)
[2017-09-01] MEDS ORDERED: ORPHENADRINE 30 MG/ML 2 ML VIAL IM STA (17:22)
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
--- NOTE | 2017-09-01 17:51 | XR ---
EXAMINATION TYPE: XR lumbar spine 2 or 3V DATE OF EXAM: 09/01/2017 CLINICAL HISTORY: Low back pain gradually worsening after fall injury 10 days ago. TECHNIQUE: Frontal and lateral images of the lumbar spine are obtained. COMPARISON: Lumbar spine x-ray February 09, 2017 FINDINGS: There are 4 lumbar type vertebral bodies redemonstrated. There is transitional type L5 mauricio tebra that is sacralized on the left seen better on current study. The lumbar spine shows stable alig nment without evidence of acute fracture or dislocation. There is persistent mild to moderate disc sp radha narrowing right L1-L2 level. There is persistent mild multilevel anterior spurring. Previously vi sualized prominent Schmorl node superior L2 and L3 endplates are less well seen on today's study. The overlying soft tissue appears unremarkable. IMPRESSION: No acute fracture or dislocation is seen in the lumbar spine.
[2017-09-01 18:24] VITALS: RESP 16
== END 2017-09-01 18:22 | disposition home or self-care (01) ==
LOC: EC 16:44
DX: S39.012A Strain of muscle, fascia and tendon of lower back, initial encounter (principal); F17.200 Nicotine dependence, unspecified, uncomplicated; Z88.5 Allergy status to narcotic agent; Z79.899 Other long term (current) drug therapy; V28.4XXA Motorcycle driver injured in noncollision transport accident in traffic accident, initial encounter; Y93.55 Activity, bike riding; Y92.828 Other wilderness area as the place of occurrence of the external cause
CPT/HCPCS: 72100; 99283; 96372 ×2; J2360; J1885

== ENCOUNTER 2017-09-14 10:09 | Emergency (ER) | payer OTHER ==
[2017-09-14 10:47] VITALS: TEMP 98.3
[2017-09-14] MEDS ORDERED: ORPHENADRINE 30 MG/ML 2 ML VIAL IVP STA (12:08)
[2017-09-14] MEDS ORDERED: KETOROLAC 30 MG/ML 1 ML VIAL IVP STA (12:08)
[2017-09-14 12:38] LABS: Basophils % (A) 0 %; Eosinophils # (A) 0.1 k/uL (0-0.7); Eosinophils % (A) 1 %; HCT 38.8 % (39.0-53.0); HGB 12.9 gm/dL (13.0-17.5); Lymphocytes # (A) 1.4 k/uL (1.0-4.8); Lymphocytes % (A) 18 %; MCHC 33.2 g/dL (31.0-37.0); MCV 90.5 fL (80.0-100.0); Mean Platelet Volume 6.6; Monocytes # (A) 0.4 k/uL (0-1.0); Monocytes % (A) 6 %; Neutrophils # (A) 5.8 k/uL (1.3-7.7); Neutrophils % (A) 73 %; Platelet Count 534 k/uL (150-450); RBC 4.29 m/uL (4.30-5.90); RDW 13.2 % (11.5-15.5); WBC 7.9 k/uL (3.8-10.6)
[2017-09-14 12:43] LABS: Appearance,Urine Clear (Clear); Bilirubin,Urine Negative (Negative); Blood,Urine Negative (Negative); Color,Urine Light Yellow; Glucose,Urine (UA) Negative (Negative); Ketones,Urine Negative (Negative); Leukocyte Esterase,Urine Negative (Negative); Nitrite,Urine Negative (Negative); PH, Urine 6.5 (5.0-8.0); Protein,Urine Negative (Negative); Specific Gravity,Urine 1.003 (1.001-1.035); Urobilinogen,Urine <2.0 mg/dL (<2.0)
--- NOTE | 2017-09-14 12:44 | ED ---
Back Pain HPI - General Chief Complaint: Back Pain/Injury Stated Complaint: back pain Time Seen by Provider: 09/14/17 11:40 Source: patient, RN notes reviewed, old records reviewed Limitations: no limitations, physical limitation - History of Present Illness Initial Comments: This patient is a 47-year-old male with complaints of lower back pain for the past month. I waited at this facility approximately three weeks ago for some more complaints. He was told that musculoskeletal pain and reports that he was getting better with Flexeril. Patient states he's out of that medicine for further valuation. Your ports that he states that he's been having some lower testicular pain and talked to a friend in the medical field and thinks he has a kidney stone. Patient ports that when he was evaluated at [facility] he told Them this and had a CAT scan last week as well as blood work. They reported that they could not find any stones at that time. Patient reported he does think he still may have a stone. Patient reports that his pain is worse with moving. He states that he's had no blood in his urine. - Related Data Home Medications Medication Instructions Recorded Confirmed Ibuprofen [Motrin] 800 mg PO TID 05/21/17 09/14/17 Multivitamins, Thera [Multivitamin 1 tab PO DAILY 05/21/17 09/14/17 (formulary)] Previous Rx's Medication Instructions Recorded Prazosin [Minipress] 2 mg PO HS #60 cap 06/07/17 QUEtiapine [SEROquel] 400 mg PO HS #30 tab 06/07/17 Cyclobenzaprine [Flexeril] 10 mg PO TID #20 tab 09/14/17 Allergies Allergy/AdvReac Type Severity Reaction Status Date / Time tramadol HCl [From Ultram] AdvReac Itching Verified 09/14/17 11:53 Review of Systems ROS Statement: Those systems with pertinent positive or pertinent negative responses have been documented in the HPI. ROS Other: All systems not noted in ROS Statement are negative. Past Medical History Past Medical History: GERD/Reflux Additional Past Medical History / Comment(s): chronic back pain, Hepatitis C. History of Any Multi-Drug Resistant Organisms: None Reported Past Surgical History: Hernia Repair, Orthopedic Surgery Additional Past Surgical History / Comment(s): Right inguinal hernia repair, calcaneal fracture repair bilaterally in 1997, cyst removed from neck Past Anesthesia/Blood Transfusion Reactions: No Reported Reaction Past Psychological History: Anxiety, Bipolar, Depression, PTSD Smoking Status: Current every day smoker Past Alcohol Use History: Rare Past Drug Use History: Marijuana - Past Family History Father Additional Family Medical History / Comment(s): Dad is alive at age 84 with hearing problems. Mother Family Medical History: Diabetes Mellitus Additional Family Medical History / Comment(s): Mother at age 73 with history of multiple CVAs and diabetes. Brother(s) Additional Family Medical History / Comment(s): Ration has 3 brothers and one half-brother. One has history of HIV, one has been in alf, one has history of rheumatic fever and bipolar. He states all brothers have history of substance abuse. Sister(s) Additional Family Medical History / Comment(s): Patient had 4 sisters. One at age 37 and had cerebral palsy and muscular dystrophy. One sister from alcoholism and drug abuse. He does not have any children. General Exam - General Exam Comments Initial Comments: This patient is a well appearing 47 year old male, no distress. Limitations: no limitations, physical limitation General appearance: alert, in no apparent distress Head exam: Present: atraumatic, normocephalic, normal inspection Eye exam: Present: normal appearance, PERRL, EOMI. Absent: scleral icterus, conjunctival injection, periorbital swelling ENT exam: Present: normal exam, mucous membranes moist Neck exam: Present: tenderness Respiratory exam: Present: normal lung sounds bilaterally. Absent: respiratory distress, wheezes, rales, rhonchi, stridor Cardiovascular Exam: Present: regular rate, normal rhythm, normal heart sounds. Absent: systolic murmur, diastolic murmur, rubs, gallop, clicks GI/Abdominal exam: Present: soft, normal bowel sounds. Absent: distended, tenderness, guarding, rebound, rigid Extremities exam: Present: normal inspection, full ROM, normal capillary refill. Absent: tenderness, pedal edema, joint swelling, calf tenderness Back exam: Present: normal inspection, muscle spasm (lumbar spinal tenderess and muscle sppasm. ), vertebral tenderness Neurological exam: Present: alert, oriented X3, CN II-XII intact Psychiatric exam: Present: normal affect, normal mood Course Vital Signs 09/14/17 09/14/17 09/14/17 10:43 12:28 14:52 Temperature 98.3 F Pulse Rate 114 H 77 85 Respiratory 18 16 18 Rate Blood Pressure 164/82 119/76 145/82 O2 Sat by Pulse 98 99 99 Oximetry Medical Decision Making - Medical Decision Making This is a 47-year-old male with CC of one month of continuous back pain worse with movement. Patient also states that he's been having some sort of pain and changes and urination and wanted to be sure that he has no kidney stone.I did obtain the CAT scan report from [facility] ER last week. . No evidence of the others if abnormalities. Patient was given IV pain medicine and lab work completed again to. Patient's lab work shows no abnormalities. Normal kidney function. Urinalysis is negative for blood or infection. I did review the chart from work for a medical center and they did complete a urine drug screen on this patient. He was positive for multiple classes of illicit drug use. Patient received a scrotal ultrasound as well as the [place] ultrasound due to continued complaints of the scrotal pain. Ultrasound was reviewed and normal. No evidence of hydronephrosis or testicular abnormalities. At this time I discussed patient has musculoskeletal pain and needs to follow up with sales administration specialist. Discharged with flexeril and will follow up with PCP and ortho. Return parameters discussed. - Lab Data Result diagrams: 09/14/17 12:15 09/14/17 12:15 Lab Results 09/14/17 09/14/17 09/14/17 Range/Units 12:15 12:15 12:15 WBC 7.9 (3.8-10.6) k/uL RBC 4.29 L (4.30-5.90) m/uL Hgb 12.9 L (13.0-17.5) gm/dL Hct 38.8 L (39.0-53.0) % MCV 90.5 (80.0-100.0) fL MCH 30.0 (25.0-35.0) pg MCHC 33.2 (31.0-37.0) g/dL RDW 13.2 (11.5-15.5) % Plt Count 534 H (150-450) k/uL Neutrophils % 73 % Lymphocytes % 18 % Monocytes % 6 % Eosinophils % 1 % Basophils % 0 % Neutrophils # 5.8 (1.3-7.7) k/uL Lymphocytes # 1.4 (1.0-4.8) k/uL Monocytes # 0.4 (0-1.0) k/uL Eosinophils # 0.1 (0-0.7) k/uL Basophils # 0.0 (0-0.2) k/uL Sodium 144 (137-145) mmol/L Potassium 4.1 (3.5-5.1) mmol/L Chloride 106 (98-107) mmol/L Carbon Dioxide 28 (22-30) mmol/L Anion Gap 10 mmol/L BUN 12 (9-20) mg/dL Creatinine 0.65 L (0.66-1.25) mg/dL Est GFR (MDRD) Af Amer >60 (>60 ml/min/1.73 sqM) Est GFR (MDRD) Non-Af >60 (>60 ml/min/1.73 sqM) Glucose 85 (74-99) mg/dL Calcium 9.3 (8.4-10.2) mg/dL Urine Color Light Yellow Urine Appearance Clear (Clear) Urine pH 6.5 (5.0-8.0) Ur Specific [place] 1.003 (1.001-1.035) Urine Protein Negative (Negative) Urine Glucose (UA) Negative (Negative) Urine Ketones Negative (Negative) Urine Blood Negative (Negative) Urine Nitrite Negative (Negative) Urine Bilirubin Negative (Negative) Urine Urobilinogen <2.0 (<2.0) mg/dL Ur Leukocyte Esterase Negative (Negative) - Radiology Data Radiology results: report reviewed Patients Patric and bladder ultrasound is negative for any acute process. Hydronephrosis. Squad alter sound shows no evidence of testicular torsion, normal artery and venous flow to bilateral testicles. Disposition Clinical Impression: Chronic low back pain Disposition: HOME SELF-CARE Condition: Good Instructions: Chronic Back Pain (ED) Additional Instructions: Patient advised to take muscle relaxers as prescribed follow-up with primary care provider. Return to the emergency department if any alarming signs or symptoms occur. Prescriptions: Cyclobenzaprine [Flexeril] 10 mg PO TID #20 tab Referrals: Ruthy David MD [Primary Care Provider] - 1-2 days Srini Collazo DO [Doctor of Osteopathic Medicine] - 1-2 days Time of Disposition: 14:53
[2017-09-14 12:47] LABS: Anion Gap 10 mmol/L; Blood Urea Nitrogen 12 mg/dL (9-20); Calcium 9.3 mg/dL (8.4-10.2); Carbon Dioxide 28 mmol/L (22-30); Chloride 106 mmol/L (98-107); Glucose 85 mg/dL (74-99); Potassium 4.1 mmol/L (3.5-5.1); Sodium 144 mmol/L (137-145)
--- NOTE | 2017-09-14 14:43 | US ---
EXAMINATION TYPE: US scrotum with doppler. Grayscale and color Doppler Duplex imaging performed of [place] scrotum. DATE OF EXAM: 09/14/2017 COMPARISON: NONE CLINICAL HISTORY: Pain. Pain bilaterally for 3 weeks EXAM MEASUREMENTS: TESTICLES: Right Testicle: 3.2 x 2.4 x 3.4 cm Left Testicle: 3.4 x 2.3 x 2.7 cm EPIDIDYMIS HEAD: Right Epididymis: 1.1 cm Left Epididymis: 0.9 cm Doppler performed to assess for testicular vascularity; good bilateral color flow and waveforms are s een. Presence of hydroceles: small fluid collections bilaterally, measuring 2.3cm on the right and 2.1cm on the left Comparison view at end of study shows symmetric blood flow to both testicles. IMPRESSION: No suspicious decreased or increased blood flow to either testicle identified.
--- NOTE | 2017-09-14 14:45 | US ---
EXAMINATION TYPE: US renals and bladder DATE OF EXAM: 09/14/2017 COMPARISON: NONE CLINICAL HISTORY: Pain. Lower abdominal pain for 3 weeks EXAM MEASUREMENTS: Right Kidney: 12.9 x 4.0 x 5.6 cm Left Kidney: 12.4 x 6.2 x 4.9 cm Right Kidney: enlarged, no evidence of hydronephrosis Left Kidney: upper limits of normal in size, no evidence of hydronephrosis Bladder: not fully distended Bilateral Jets seen: no Prostate appears heterogeneous There is no evidence for hydronephrosis at this point in time. No nephrolithiasis is seen. No colleen s are identified. The urinary bladder is not greatly distended but there is no suspicious intralumin al mass or wall thickening. Bilateral ureteral jets are not seen. IMPRESSION: No hydronephrosis is seen bilaterally. No suspicious finding is seen to account for patient's symptom s.
[2017-09-14 14:53] VITALS: BP 145/82; PULSE 85; RESP 18
== END 2017-09-14 15:05 | disposition home or self-care (01) ==
LOC: EC 10:09
DX: M54.5 Low back pain (principal); G89.29 Other chronic pain; F17.200 Nicotine dependence, unspecified, uncomplicated; Z79.1 Long term (current) use of non-steroidal anti-inflammatories (NSAID); Z88.5 Allergy status to narcotic agent
CPT/HCPCS: 36415; 80048; 85025; 81003; 93975; 76870; 76770; 99284; 96372; J2360; J1885

== ENCOUNTER 2017-09-30 16:43 | Emergency (ER) | payer OTHER ==
[2017-09-30 17:10] VITALS: BP 129/70; PULSE 74; RESP 18; TEMP 99.1
--- NOTE | 2017-09-30 17:24 | ED ---
General Adult HPI - General Chief complaint: Skin/Abscess/Foreign Body Stated complaint: Arm Infection Time Seen by Provider: 09/30/17 17:14 Source: patient, RN notes reviewed Mode of arrival: ambulatory Limitations: no limitations - History of Present Illness Initial comments: 47 yo male presents to the ER with cc of right forearm abscess. Patient does admit to IV drug use. Patient is hep C positive. He states that if the area but has swelled up. no drainge. no history of MRSA. no fever. no pain with movement of elbow. no other complaints at this time. Patient denies any recent fever, chills, shortness of breath, chest pain, back pain, abdominal pain, nausea vomiting, numbness or tingling, dysuria or hematuria, constipation or diarrhea, headaches or visual changes, or any other current symptoms. - Related Data Home Medications Medication Instructions Recorded Confirmed Ibuprofen [Motrin] 800 mg PO TID 05/21/17 09/14/17 Multivitamins, Thera [Multivitamin 1 tab PO DAILY 05/21/17 09/14/17 (formulary)] Previous Rx's Medication Instructions Recorded Prazosin [Minipress] 2 mg PO HS #60 cap 06/07/17 QUEtiapine [SEROquel] 400 mg PO HS #30 tab 06/07/17 Cyclobenzaprine [Flexeril] 10 mg PO TID #20 tab 09/14/17 Sulfamethox-Tmp 800-160Mg [Bactrim 2 each PO Q12HR #56 tab 09/30/17 DS 800-160 mg] Allergies Allergy/AdvReac Type Severity Reaction Status Date / Time tramadol HCl [From Ultram] AdvReac Itching Verified 09/30/17 17:06 Review of Systems ROS Statement: Those systems with pertinent positive or pertinent negative responses have been documented in the HPI. ROS Other: All systems not noted in ROS Statement are negative. Past Medical History Past Medical History: GERD/Reflux Additional Past Medical History / Comment(s): chronic back pain, Hepatitis C. History of Any Multi-Drug Resistant Organisms: None Reported Past Surgical History: Hernia Repair, Orthopedic Surgery Additional Past Surgical History / Comment(s): Right inguinal hernia repair, calcaneal fracture repair bilaterally in 1997, cyst removed from neck Past Anesthesia/Blood Transfusion Reactions: No Reported Reaction Past Psychological History: Anxiety, Bipolar, Depression, PTSD Smoking Status: Current every day smoker Past Alcohol Use History: Rare Past Drug Use History: Marijuana - Past Family History Father Additional Family Medical History / Comment(s): Dad is alive at age 84 with hearing problems. Mother Family Medical History: Diabetes Mellitus Additional Family Medical History / Comment(s): Mother at age 73 with history of multiple CVAs and diabetes. Brother(s) Additional Family Medical History / Comment(s): Ration has 3 brothers and one half-brother. One has history of HIV, one has been in detention, one has history of rheumatic fever and bipolar. He states all brothers have history of substance abuse. Sister(s) Additional Family Medical History / Comment(s): Patient had 4 sisters. One at age 37 and had cerebral palsy and muscular dystrophy. One sister from alcoholism and drug abuse. He does not have any children. General Exam - General Exam Comments Initial Comments: General: The patient is awake and alert, in no distress, and does not appear acutely ill. Neck: The neck is supple, there is no tenderness. Cardiovascular: There is a regular rate and rhythm. No murmur, rub or gallop is appreciated. Respiratory: Lungs are clear to auscultation, respirations are non-labored, breath sounds are equal. No wheezes, stridor, rales, or rhonchi. Musculoskeletal: Sensation intact with 2+ pulses at the right upper x-ray. Fund motion of right shoulder right elbow and right. An abscess to the right elbow. 5 out of 5 muscle strength testing throughout. Neurological: CN II-XII intact, There are no obvious motor or sensory deficits. Coordination appears grossly intact. Speech is normal. Skin: Skin is warm and dry and no rashes or lesions are noted. Psychiatric: Normal mood and affect. Limitations: no limitations Course Vital Signs 09/30/17 17:06 Temperature 99.1 F Pulse Rate 74 Respiratory 18 Rate Blood Pressure 129/70 O2 Sat by Pulse 95 Oximetry Procedures - Procedures Initial comment: Procedure: Incision and drainage The skin overlying the abscess was prepped with Betadine, and anesthetized with 1% lidocaine without epinephrine. A #11 scalpel was then used to incise the abscess. Some purulent material was then extracted from the lesion. Gauze dressing placed on top, The patient tolerated the procedure well. Medical Decision Making - Medical Decision Making 47-year-old male presents for right elbow abscess. Patient does have good full range of motion. Redness is only surrounding the area. Patient underwent I&D. We discussed care follow-up return parameters. Patient family stated they understood and management time. Patient will be discharged. Disposition Clinical Impression: Abscess of right arm Disposition: HOME SELF-CARE Condition: Stable Instructions: Abscess Incision and Drainage (ED), Abscess (ED) Additional Instructions: Please use medication as discussed. Please follow up with family doctor if symptoms have not improved over the next two days. Please return to the emergency room if your symptoms increase or worsen or for any other concerns. Prescriptions: Sulfamethox-Tmp 800-160Mg [Bactrim DS 800-160 mg] 2 each PO Q12HR #56 tab Referrals: Ruthy David MD [Primary Care Provider] - 1-2 days Time of Disposition: 17:42
== END 2017-09-30 17:45 | disposition home or self-care (01) ==
LOC: EC 16:43
DX: L02.413 Cutaneous abscess of right upper limb (principal); M54.9 Dorsalgia, unspecified; G89.29 Other chronic pain; F17.200 Nicotine dependence, unspecified, uncomplicated; Z79.1 Long term (current) use of non-steroidal anti-inflammatories (NSAID); Z88.6 Allergy status to analgesic agent
CPT/HCPCS: 10060; 99283

== ENCOUNTER 2017-10-03 18:11 | Emergency (ER) | payer OTHER ==
[2017-10-03 18:22] VITALS: BP 122/66; PULSE 87; RESP 18; TEMP 97.7
[2017-10-03] MEDS ORDERED: KETOROLAC 30 MG/ML 1 ML VIAL IM STA (18:48)
[2017-10-03] MEDS ORDERED: ORPHENADRINE 30 MG/ML 2 ML VIAL IM STA (18:48)
--- NOTE | 2017-10-03 19:06 | ED ---
Back Pain HPI - General Chief Complaint: Back Pain/Injury Stated Complaint: Back Spasms Time Seen by Provider: 10/03/17 18:42 Source: patient, EMS, RN notes reviewed Limitations: no limitations - History of Present Illness Initial Comments: This is a 47-year-old male who presents to the emergency department with chief complaint of back spasms. Patient was brought to the emergency department via EMS. He states that he rode his bike to his chiropractor's office earlier today. He states that he was unable to get up off of the chiropractors table due to intense low back spasms that radiate to his pelvis and groin. EMS was then contacted. Patient states that this has been going on since the beginning of August. He has been seen here and at [facility] with the same complaint. On review of previous documentation, CAT scan performed at [facility] was negative for any acute abnormalities. On September 14 patient was seen here and ultrasound of scrotum as well as renals was obtained. Neither of these studies showed any acute abnormalities. Patient's urine drug screen was positive for multiple illicit drugs. Patient presents again today complaining of continued back spasms. He states he has not followed up with orthopedics or his primary care provider as recommended on last visit. He denies any saddle paresthesias or loss of bladder or bowel function. Denies any numbness or tingling or radiation of pain down the legs. Denies fever, chills, chest pain, shortness of breath, abdominal pain, nausea or vomiting, constipation or diarrhea, dysuria or hematuria, numbness or tingling, headache or vision changes. - Related Data Home Medications Medication Instructions Recorded Confirmed Multivitamins, Thera [Multivitamin 1 tab PO DAILY 05/21/17 10/03/17 (formulary)] Previous Rx's Medication Instructions Recorded Ibuprofen [Motrin] 600 mg PO Q6HR PRN #20 tab 09/30/17 Cyclobenzaprine [Flexeril] 10 mg PO TID #12 tab 10/03/17 Allergies Allergy/AdvReac Type Severity Reaction Status Date / Time tramadol HCl [From Ultra] Allergy Rash/Hives Verified 10/03/17 19:08 Review of Systems ROS Statement: Those systems with pertinent positive or pertinent negative responses have been documented in the HPI. ROS Other: All systems not noted in ROS Statement are negative. Past Medical History Past Medical History: GERD/Reflux Additional Past Medical History / Comment(s): chronic back pain, Hepatitis C. History of Any Multi-Drug Resistant Organisms: None Reported Past Surgical History: Hernia Repair, Orthopedic Surgery Additional Past Surgical History / Comment(s): Right inguinal hernia repair, calcaneal fracture repair bilaterally in 1997, cyst removed from neck Past Anesthesia/Blood Transfusion Reactions: No Reported Reaction Past Psychological History: Anxiety, Bipolar, Depression, PTSD, Schizophrenia Smoking Status: Current every day smoker Past Alcohol Use History: Rare Past Drug Use History: Marijuana - Past Family History Father Additional Family Medical History / Comment(s): Dad is alive at age 84 with hearing problems. Mother Family Medical History: Diabetes Mellitus Additional Family Medical History / Comment(s): Mother at age 73 with history of multiple CVAs and diabetes. Brother(s) Additional Family Medical History / Comment(s): Ration has 3 brothers and one half-brother. One has history of HIV, one has been in nursing home, one has history of rheumatic fever and bipolar. He states all brothers have history of substance abuse. Sister(s) Additional Family Medical History / Comment(s): Patient had 4 sisters. One at age 37 and had cerebral palsy and muscular dystrophy. One sister from alcoholism and drug abuse. He does not have any children. General Exam - General Exam Comments Initial Comments: General: Awake and alert, well-developed; in no apparent distress. Uncooperative. HEENT: Head atraumatic, normocephalic. Pupils are equal, round and reactive to light. Extraocular movements intact. Oropharynx moist without erythema or exudate. Neck: Supple. Normal ROM. Cardiovascular: Regular rate and rhythm. No murmurs, rubs or gallops. Chest symmetrical. Respiratory: Lungs clear to auscultation bilaterally. No wheezes, rales or rhonchi. Normal respiratory effort with no use of accessory muscles. Abdomen: Soft, non-tender, non-distended. No rigidity, rebound or guarding. Normal bowel sounds in all 4 quadrants. Musculoskeletal: Normal range of motion of spine. There is tenderness on palpation of lumbar paraspinal muscles. There is no tenderness on palpation of bilateral upper and lower extremities. Sensation is intact. Pedal pulses are 2 + equal and palpable bilaterally. Skin: [place], warm and dry without rashes or lesions. Neurological: Alert and oriented x3. CN II-XII grossly intact. Speech is fluent and answers are appropriate. No focal neuro deficits. Limitations: no limitations Course Vital Signs 10/03/17 18:19 Temperature 97.7 F Pulse Rate 87 Respiratory 18 Rate Blood Pressure 122/66 O2 Sat by Pulse 98 Oximetry Medical Decision Making - Medical Decision Making This is a 47-year-old male who presents to the emergency department with chief complaint of back spasms. Earlier today patient rode his bike to his chiropractor's office. He states she did some light manipulations but then felt like he was paralyzed. He was brought to the emergency department via EMS. Extensive workups have been performed both here and at [facility]'s emergency departments for these back spasms. Computed tomography scan obtained at [facility] revealed no acute abnormalities. Ultrasound of the renals and scrotum performed here on September 14 revealed no acute abnormalities. Patient's labs have been unremarkable. Patient has yet to follow-up with his primary care provider or orthopedics as suggested. Patient was given Toradol and Norflex in the emergency department and there was improvement in his symptoms. Patient will be discharged home. He is in no acute distress. He is to follow-up with Dr. David and orthopedics. He is in agreement and voices understanding. All questions were answered. Disposition Clinical Impression: Chronic low back pain, Spasm of muscle of lower back Disposition: HOME SELF-CARE Condition: Good Instructions: Muscle Spasm (ED), Lower Back Exercises (ED), Chronic Back Pain ( ED) Additional Instructions: Please follow-up with orthopedics within 1-2 days. Please take medications as prescribed. Please follow up with primary care provider within 1-2 days. Return to emergency department if symptoms should worsen or any concerns arise. Prescriptions: Cyclobenzaprine [Flexeril] 10 mg PO TID #12 tab Referrals: Ruthy David MD [Primary Care Provider] - 1-2 days Segun Kingston DO [Doctor of Osteopathic Medicine] - 1-2 days Time of Disposition: 19:55
== END 2017-10-03 20:41 | disposition home or self-care (01) ==
LOC: EC 18:11
DX: M62.830 Muscle spasm of back (principal); M54.5 Low back pain; G89.29 Other chronic pain; F17.200 Nicotine dependence, unspecified, uncomplicated; Z88.6 Allergy status to analgesic agent
CPT/HCPCS: 99283; 96372 ×2; J2360; J1885

== ENCOUNTER → 2017-10-14 | Outpatient (CLI) | payer OTHER ==
--- NOTE | 2017-10-15 09:13 | MR ---
EXAMINATION TYPE: MR lumbar spine wo con DATE OF EXAM: 10/14/2017 COMPARISON: Previous lumbar MR 03/29/2017 HISTORY: Chronic low back pain x20 years, previous MRI on PACS TECHNIQUE: Multiplanar, multisequence images of the lumbar spine were acquired. L1-L2: Loss of disc height and signal is present compatible with disc desiccation and degenerative di sc disease. Circumferential posterior broad-based disc bulge causes mild anterior mass effect on the thecal sac. L2-L3: Posterior extension of endplate disc complex is noted resulting in spinal stenosis which is mo derate. There is some associated facet arthropathy. Paraspinal soft tissues show increased signal in T2-weighted sequences extending into the musculature. Lateral extension endplate disc complex results in bilateral foraminal encroachment. L3-L4: Loss of disc height and signal is present, posterior extension of endplate disc complex somewh at eccentric towards the right causing anterolateral mass effect on the thecal sac, no significant ce ntral stenosis. There is some facet arthropathy with hypertrophy of the ligamentum flavum. Paraspinal musculature shows inflammatory changes. L4-L5: There is a mild facet arthropathy change. No significant central stenosis or foraminal encroac hment, broad-based posterior disc bulge causes mild anterior mass effect on the thecal sac. L5-S1: There is some facet arthropathy, hypertrophy of the ligamentum flavum is mild. No significant central stenosis or foraminal encroachment. There is abnormal signal present at the L2 and L3 vertebral bodies. There is a kyphosis, loss of ana ical signal is present at the endplates inferiorly at L2, superiorly at L3. Increased signal present along the disc space on T2-weighted sequences, intermediate signal seen on T1-weighted sequences thro ughout the vertebral body of L2 and L3. Disc space is not well defined. Fluid signal is present anter ior to the disc space measuring approximately 2.2 x 4.5 x 1.5 cm, possibly localized abscess, smaller similar finding is present towards the right at the disc space measuring approximately 2 cm in great est dimension, smaller focus measuring 13 mm present towards the left of the disc space. The conus is at T11-12 and is normal. IMPRESSION: Discitis, osteomyelitis, infection involving the paraspinal soft tissues as described. There is bone destruction, kyphosis with resulting spinal stenosis. Results relayed preliminarily at the time of in itial review at 1935 hours 10/14/[address] David telephonically.
== END ==
LOC: RADMRIMAIN 17:42
PROVIDERS: ATTEND Internal Medicine
DX: M54.5 Low back pain (principal); M40.205 Unspecified kyphosis, thoracolumbar region
CPT/HCPCS: 72148

== ENCOUNTER 2017-10-15 09:17 | Inpatient (IN) | payer OTHER ==
[2017-10-15] MEDS ORDERED: DIAZEPAM 5 MG/ML 2 ML INJ IVP STA (09:23)
[2017-10-15] MEDS ORDERED: KETOROLAC 30 MG/ML 1 ML VIAL IVP STA (09:23)
[2017-10-15] MEDS ORDERED: VANCOMYCIN IV PER PHARMACY 1 EACH MISC MISCELLANE PRN (09:31)
[2017-10-15] MEDS ORDERED: LEVOFLOXACIN 750MG-D5W PMX 750 MG in DEXTROSE/WATER 1 150ML.BAG IVPB STA (09:31)
[2017-10-15] MEDS ORDERED: ONDANSETRON 4 MG/2 ML VIAL IVP PRN (09:35)
[2017-10-15] MEDS ORDERED: NALOXONE 0.4 MG/ML 1 ML VIAL IV PRN (09:35)
--- NOTE | 2017-10-15 09:35 | ED ---
Back Pain HPI - General Chief Complaint: Back Pain/Injury Stated Complaint: BACK PAIN Time Seen by Provider: 10/15/17 09:18 Source: patient, EMS, RN notes reviewed Mode of arrival: EMS Limitations: no limitations - History of Present Illness Initial Comments: This a 47-year-old male presents emergency Department chief complaint of back pain. Patient had an MRI last night which showed abnormal findings and was advised emergency department. Patient states she's been dealing with worsening back pain since the beginning of August. He does have chronic back pain since from a fracture. Patient states she's never had any injections in his back. Patient does state that he has a history of IV drug use. Patient states he was clean for 3 years but relapsed approximately one month ago. Patient states he is currently on anti-inflammatories and Zanaflex. Patient denies any fever, chills, night sweats. He does have a history of hep C. Patient denies any bowel bladder incontinence or retention. Denies any saddle anesthesias. - Related Data Home Medications Medication Instructions Recorded Confirmed Multivitamins, Thera [Multivitamin 1 tab PO DAILY 05/21/17 10/03/17 (formulary)] Previous Rx's Medication Instructions Recorded Ibuprofen [Motrin] 600 mg PO Q6HR PRN #20 tab 09/30/17 Cyclobenzaprine [Flexeril] 10 mg PO TID #12 tab 10/03/17 Ibuprofen 600 mg PO Q6HR #20 tablet 10/03/17 Allergies Allergy/AdvReac Type Severity Reaction Status Date / Time tramadol HCl [From Ultram] Allergy Rash/Hives Verified 10/15/17 09:20 Review of Systems ROS Statement: Those systems with pertinent positive or pertinent negative responses have been documented in the HPI. ROS Other: All systems not noted in ROS Statement are negative. Past Medical History Past Medical History: GERD/Reflux Additional Past Medical History / Comment(s): chronic back pain, Hepatitis C. History of Any Multi-Drug Resistant Organisms: None Reported Past Surgical History: Hernia Repair, Orthopedic Surgery Additional Past Surgical History / Comment(s): Right inguinal hernia repair, calcaneal fracture repair bilaterally in 1997, cyst removed from neck Past Anesthesia/Blood Transfusion Reactions: No Reported Reaction Past Psychological History: Anxiety, Bipolar, Depression, PTSD, Schizophrenia Smoking Status: Current every day smoker Past Alcohol Use History: Rare Past Drug Use History: Heroin, IV Drug Use, Marijuana - Past Family History Father Additional Family Medical History / Comment(s): Dad is alive at age 84 with hearing problems. Mother Family Medical History: Diabetes Mellitus Additional Family Medical History / Comment(s): Mother at age 73 with history of multiple CVAs and diabetes. Brother(s) Additional Family Medical History / Comment(s): Ration has 3 brothers and one half-brother. One has history of HIV, one has been in fpc, one has history of rheumatic fever and bipolar. He states all brothers have history of substance abuse. Sister(s) Additional Family Medical History / Comment(s): Patient had 4 sisters. One at age 37 and had cerebral palsy and muscular dystrophy. One sister from alcoholism and drug abuse. He does not have any children. General Exam General appearance: alert, in no apparent distress Neck exam: Present: normal inspection. Absent: tenderness, meningismus, lymphadenopathy Respiratory exam: Present: normal lung sounds bilaterally. Absent: respiratory distress, wheezes, rales, rhonchi, stridor Cardiovascular Exam: Present: normal rhythm, tachycardia, normal heart sounds. Absent: systolic murmur, diastolic murmur, rubs, gallop, clicks GI/Abdominal exam: Present: soft, normal bowel sounds. Absent: distended, tenderness, guarding, rebound, rigid Extremities exam: Present: normal inspection, full ROM, normal capillary refill. Absent: tenderness, pedal edema, joint swelling, calf tenderness Back exam: Present: normal inspection, full ROM (Moderate discomfort), tenderness (Diffuse lumbar), paraspinal tenderness, vertebral tenderness Neurological exam: Present: reflexes normal. Absent: motor sensory deficit Course Vital Signs 10/15/17 09:20 Temperature 96.8 F L Pulse Rate 130 H Respiratory 18 Rate Blood Pressure 164/63 O2 Sat by Pulse 98 Oximetry Medical Decision Making - Medical Decision Making 47-year-old male presented to the emergency Department for abnormal MRI. Patient be admitted for discitis, osteomyelitis. Patient will be started on Bentyl, Levaquin. Disposition Clinical Impression: Discitis of lumbar region, Osteomyelitis, Lumbar back pain, IV drug user Disposition: ADMITTED IP TO THIS [facility] Condition: Fair Referrals: Ruthy David MD [Primary Care Provider] - 1-2 days
[2017-10-15] MEDS ORDERED: SODIUM CHLORIDE 0.9% 1,000 ML IV SCH (09:45)
[2017-10-15 09:58] LABS: Basophils % (A) 1 %; Eosinophils # (A) 0.2 k/uL (0-0.7); Eosinophils % (A) 3 %; HCT 36.6 % (39.0-53.0); HGB 13.2 gm/dL (13.0-17.5); Hyperchromasia Slight; Lymphocytes # (A) 1.7 k/uL (1.0-4.8); Lymphocytes % (A) 30 %; MCH 29.9 pg (25.0-35.0); Mean Platelet Volume 6.2; Monocytes # (A) 0.3 k/uL (0-1.0); Monocytes % (A) 5 %; Neutrophils # (A) 3.3 k/uL (1.3-7.7); Neutrophils % (A) 58 %; Platelet Count 533 k/uL (150-450); RBC 4.42 m/uL (4.30-5.90); RDW 13.2 % (11.5-15.5); WBC 5.8 k/uL (3.8-10.6)
[2017-10-15 09:59] LABS: Partial Thromboplastin Time 23.9 sec (22.0-30.0); Prothrombin Time 10.2 sec (9.0-12.0)
[2017-10-15 10:12] LABS: ALT 19 U/L (21-72); AST 20 U/L (17-59); Albumin 3.6 g/dL (3.5-5.0); Alkaline Phosphatase 84 U/L (38-126); Anion Gap 13 mmol/L; Blood Urea Nitrogen 13 mg/dL (9-20); C Reactive Protein 52.2 mg/L (<10.0); Calcium 9.6 mg/dL (8.4-10.2); Carbon Dioxide 25 mmol/L (22-30); Chloride 101 mmol/L (98-107); Glucose 125 mg/dL (74-99); Potassium 3.3 mmol/L (3.5-5.1); Sodium 139 mmol/L (137-145); Total Bilirubin 0.3 mg/dL (0.2-1.3); Total Protein 6.7 g/dL (6.3-8.2)
[2017-10-15 10:54] LABS: Erythrocyte Sedimentation Rate 69 mm/hr (0-15)
[2017-10-15] MEDS: MORPHINE SULFATE/PF 10MG/10ML VL IV PRN ×3 (11:11→20:06)
[2017-10-15 11:53] VITALS: BMI 20.5
[2017-10-15] MEDS ORDERED: VANCOMYCIN 1,250 MG in SODIUM CHLORIDE 0.9% 250 ML IVPB SCH (12:00)
[2017-10-15 12:29] VITALS: RESP 20; TEMP 97.2
[2017-10-15] MEDS ORDERED: IBUPROFEN 600 MG TAB PO PRN (13:46)
[2017-10-15] MEDS: HYDROcodone/APAP 5-325MG 1 EACH TAB PO PRN ×2 (14:03→18:26)
[2017-10-15 14:56] VITALS: BP 92/59; PULSE 97
[2017-10-15] MEDS: CYCLOBENZAPRINE 10 MG TAB PO SCH ×2 (15:50→20:06)
--- NOTE | 2017-10-15 16:18 | HP ---
HISTORY AND PHYSICAL DATE OF SERVICE: 10/15/2017. CHIEF COMPLAINT: Back pain. BRIEF HISTORY: Patient is a 47-year-old male patient who presented to ED with a complaint of back pain. Patient has had an MRI done last night, which showed some abnormal findings and was advised to come to the emergency department. Patient claims that he has been dealing with back pain since August and it has been getting progressively worse. Patient has history of chronic back pain secondary to fracture. Does have history of IV drug abuse, but claims that he is clean for 3 years but relapsed approximately about a month ago. Patient takes antiinflammatory and Zanaflex for back pain. He is also positive for hepatitis C. PAST MEDICAL HISTORY: Significant for gastroesophageal reflux disease, chronic back pain, hepatitis C, anxiety, bipolar depression, posttraumatic stress disorder, and schizophrenia. PAST SURGICAL HISTORY: Significant for right inguinal hernia repair, hernia repair, calcaneal fracture repair bilaterally, and cyst removed from neck. SOCIAL HISTORY: Patient is a daily smoker. He has history of IV drug abuse and history of marijuana use. He uses heroin. FAMILY HISTORY: Significant for diabetes mellitus in mother and with multiple CVAs. Also history of HIV in one brother and rheumatic fever and bipolar in another one. All of patient's brothers have history of substance abuse. He is allergic to TRAMADOL. MEDICATIONS: Patient is on: 1. Multivitamins 1 daily. 2. Ibuprofen 600 mg every 6 hours. 3. Flexeril 10 mg t.i.d. REVIEW OF SYSTEMS: CONSTITUTIONAL: Patient denies fever and chills. HEENT: No hearing or vision loss. LUNGS: No shortness of breath or cough or chest congestion. CARDIOVASCULAR: No chest pain or palpitations. ABDOMEN/GI: No nausea, vomiting or diarrhea. GENITOURINARY: No hematuria, no dysuria. MUSCULOSKELETAL: Back pain as described above. NEUROLOGICAL EXAMINATION: No dizziness, lightheadedness. No vision changes. The 14-point review of system is unremarkable. PHYSICAL EXAMINATION: Vital signs temperature of 96.8, pulse 130, respiration 18, blood pressure 164/63, O2 saturation 98%. HEENT: Atraumatic, normocephalic. Pupils equal and reactive to light. Extraocular movements intact. Buccal mucosa is moist. NECK: Supple without lymphadenopathy. JVD is negative. No carotid bruit heard. Lungs are clear to auscultate. No rales, rhonchi, or wheezes. Heart is tachycardic, regular rhythm without any murmurs, gallop, rhythm. ABDOMEN: Soft, nontender, nondistended. Bowel sounds positive. Extremities are full range of motion. No tenderness. BACK EXAMINATION: Patient has full range of motion. Tenderness close to lumbar spine with some paraspinal and vertebral tenderness. NEUROLOGICAL EXAMINATION: Cranial nerves 2 through 12 grossly intact. No gross motor sensory deficit. Skin is warm, dry, intact. LABS: CBC, white blood count of 5.8, hemoglobin 13.2, hematocrit 36.6 and platelet count of 533. Sed rate of 69. Chemical profile sodium 139, potassium 3.3, chloride 101 bicarb is 25, BUN 13, creatinine 0.6, glucose 125. C-reactive protein of 52. MRI of the lumbar spine shows diskitis and osteomyelitis. ASSESSMENT: 1. Osteomyelitis/diskitis of lumbar spine. 2. Uncontrolled hypertension. 3. Tachycardia, possibly secondary to dehydration versus sepsis. 4. Hypokalemia. PLAN: Admit the patient to regular medical floor. Will start patient on all home medications. Patient is started on IV Levaquin and vancomycin from the ED, will continue. We will consult Infectious Disease for further recommendations. We will continue all home medications at this point. Use subcu heparin for DVT prophylaxis and the patient is FULL CODE. MMODL / IJN: [id number] /
[2017-10-15] MEDS ORDERED: DIPH,PERTUS(ACELL)TETVAC-LF 0.5 ML VIAL IM ONE (16:46)
--- NOTE | 2017-10-15 16:56 | P.CONS ---
History of Present Illness - Reason for Consult Consult date: 10/15/17 - Chief Complaint Severe back pain - History of Present Illness 47-year-old male presents to the emergency center by request of his primary care physician after undergoing an MRI of his lumbosacral spine. Mr. Segovia has a history of following through roof 20 years ago suffered an injury to his spine and has had difficulty with chronic back pain through his entire adult life. In 2017 who is having increasing amounts of pain and did undergo an MRI that verified the significant degenerative disease to his spine. He has had significant difficulties with pain control over the years and has lapsed into injection drug use at times. Relates that he was highly active with this 3 years ago but has been relatively clean until earlier this year when because his pain was so poorly controlled he went back to some heroin use. He even developed an abscess to his right brachial area from injection at that site. Since August he's had a significant decline of his status in that his pain is continuing to get worse. He was having some pain that radiated into his groin and underwent ultrasound without evidence of obstruction of the urinary system, no stones or hydrocele. X-rays that were done showed evidence of his degenerative disease but no new acute changes. He was seen by his primary care physician was sent for an outpatient MRI because of his severe back pain. It is not as the MRI was markedly abnormal at the L2-L3 with evidence of discitis and osteomyelitis and paraspinous fluid collection consistent with abscess. Because of this he was admitted to hospital. Infectious diseases consultation requested regarding these issues. The patient relates over the last 6 months she's had significant difficulties with his whole physical status. He is a chronic pain and great difficulties dealing with it. He's tried to be placed on a Suboxone program that was somewhat helpful for him in the past but had difficulty finding physicians to prescribe this as of late. With this pain and opiate use his undergone weight loss he believes he is down almost 30 pounds from his normal weight of a couple years ago. He is denying high-grade fevers or chills. He is not having rigors or night sweats. He is denying difficulty with bowel or bladder function. He does not have difficulty walking except the severe pain that it causes. Review of Systems HEENT:Denies headache or acute visual change. Denies sinus or mouth discomforts. Denies neck stiffness or pain. Denies significant oral cavity pain. Denies difficulty on swallowing. Lungs: Denies significant shortness of breath, cough, sputum production, or hemoptysis. Cardiovascular: Denies significant shortness of breath, chest pain, chest wall pain, orthopnea, dyspnea on exertion, syncope Gastrointestinal:Denies nausea, vomiting, diarrhea, constipation, hematemesis, melena, hematochezia. No no significant change of bowel habit noticed. Musculoskeletal: As per the HPI severe back pain. Skin: Denies new rash or lesions. No new ulcers or wounds are related.. Neuro: Denies headache or visual change. Denies any new onset weakness or difficulty with ambulation. Denies falls or seizures. Psychiatric: He has history of chronic anxiety and depression with bipolar disorder and PTSD Endocrine: As noted some fatigue and weight loss has occurred Past Medical History Past Medical History: GERD/Reflux Additional Past Medical History / Comment(s): chronic back pain, Hepatitis C. History of Any Multi-Drug Resistant Organisms: None Reported Past Surgical History: Hernia Repair, Orthopedic Surgery Additional Past Surgical History / Comment(s): Right inguinal hernia repair WITH MESH, calcaneal fracture repair bilaterally in 1997 WITH HARDWARE, cyst removed from neck Past Anesthesia/Blood Transfusion Reactions: No Reported Reaction Past Psychological History: Anxiety, Bipolar, Depression, PTSD, Schizophrenia Additional Psychological History / Comment(s): Single , no children. Positive tobacco use no current alcohol use. Relates to heroin use last time was in August which point in time he had the abscess in his right antecubital. 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 No experience. No international travel. No current animal exposures. Has PTSD partly related to having his dog shot by the police. Patient has been incarcerated in the past for breaking into was store and stealing drugs. Smoking Status: Current every day smoker Past Alcohol Use History: Rare Additional Past Alcohol Use History / Comment(s): Patient is a smoker of one and half packs of cigarettes per day for 30-35 years. He does use marijuana off the streets. He has history of cocaine, crack, methamphetamines, heroin use and started using drugs at 11 years of age and gradually progressed to heroin. History of alcoholism with drinking a fifth and a 12 pack at a time. He is currently unemployed. He lives in an apartment by himself. Past Drug Use History: Heroin, IV Drug Use, Marijuana Additional Drug Use History / Comment(s): Pt. admits to using heroin/fentanyl " A MONTH ago. And Marijuana about 3 days ago." - Past Family History Father Additional Family Medical History / Comment(s): Dad is alive at age 84 with hearing problems. Mother Family Medical History: Diabetes Mellitus Additional Family Medical History / Comment(s): Mother at age 73 with history of multiple CVAs and diabetes. Brother(s) Additional Family Medical History / Comment(s): Ration has 3 brothers and one half-brother. One has history of HIV, one has been in custodial, one has history of rheumatic fever and bipolar. He states all brothers have history of substance abuse. Sister(s) Additional Family Medical History / Comment(s): Patient had 4 sisters. One at age 37 and had cerebral palsy and muscular dystrophy. One sister from alcoholism and drug abuse. He does not have any children. Medications and Allergies Home Medications and Allergies Comment(s): Current Medications Hydrocodone Bitart/Acetaminophen ([place] 5-325) 1 each PO Q4HR PRN PRN Reason: Moderate Pain Last Admin: 10/15/17 14:03 Dose: 1 each Cyclobenzaprine HCl (Flexeril) 10 mg PO TID [facility] Last Admin: 10/15/17 15:50 Dose: 10 mg Sodium Chloride (Saline 0.9%) 1,000 mls @ 75 mls/hr IV .[id number] [facility] Last Admin: 10/15/17 09:47 Dose: 75 mls/hr Vancomycin HCl 1,250 mg/ (Sodium Chloride) 250 mls @ 125 mls/hr IVPB Q8H [facility] Last Admin: 10/15/17 14:30 Dose: 125 mls/hr Ceftazidime 2 gm/ Sodium (Chloride) 100 mls @ 100 mls/hr IVPB Q8HR [facility] Ibuprofen (Motrin) 600 mg PO Q6HR PRN PRN Reason: Pain Morphine Sulfate (Morphine Sulfate) 4 mg IV Q4HR PRN PRN Reason: Severe Pain Last Admin: 10/15/17 15:54 Dose: 4 mg Multivitamins (Theragran) 1 each PO DAILY@1200 [facility] Naloxone HCl (Narcan) 0.2 mg IV Q2M PRN PRN Reason: Opioid Reversal Nicotine (Habitrol 21mg/24hr Patch) 1 patch TRANSDERM DAILY [facility] Ondansetron HCl (Zofran) 4 mg IVP Q8HR PRN PRN Reason: Nausea And Vomiting Pantoprazole Sodium (Protonix) 40 mg IV DAILY [facility] Home Medications Medication Instructions Recorded Confirmed Type Multivitamins, Thera [Multivitamin 1 tab PO DAILY 05/21/17 10/15/17 History (formulary)] Ibuprofen [Motrin] 600 mg PO Q6HR PRN #20 tab 09/30/17 10/15/17 Rx Cyclobenzaprine [Flexeril] 10 mg PO TID #12 tab 10/03/17 10/15/17 Rx Allergies Allergy/AdvReac Type Severity Reaction Status Date / Time tramadol HCl [From [facility]] Allergy Rash/Hives Verified 10/15/17 11:35 Physical Exam Vitals: Vital Signs Temp Pulse Pulse Resp BP BP BP 10/15/17 15:17 97 20 10/15/17 14:55 97.2 F L 97 20 92/59 107/43 10/15/17 11:00 97.2 F L 108 H 20 108/58 89/68 10/15/17 10:16 114 H 16 117/62 10/15/17 09:20 96.8 F L 130 H 18 164/63 Pulse Ox 10/15/17 15:17 10/15/17 14:55 98 10/15/17 11:00 100 10/15/17 10:16 98 10/15/17 09:20 98 Intake and Output 10/15/17 10/15/17 10/15/17 06:59 14:59 22:59 Other: # Voids 1 Weight 61.235 kg 47-year-old male with a very thin build is obviously uncomfortable HEENT: Anicteric conjunctiva are pink and moist nasal mucosa grossly intact without significant lesions, there is no thrush. Dentition is poor for age Neck: The neck is supple without significant lymphadenopathy or thyromegaly. Lungs: Good bilateral air entry without significant crackles or wheezing. There is no significant bronchial sounds. There is no egophony or dullness. Heart: Regular rate and rhythm with an audible S1-S2, no S3 no S4. There is no significant murmur click or rub, PMI was nondisplaced. Abdomen: Positive bowel sounds soft and nontender without palpable masses or organomegaly. There was no guarding or rebound. Extremities: The upper extremities have excellent pulses they are symmetric, no significant petechiae or telangiectasia. No splinter hemorrhages were noted. The lower extremities are free from significant edema. The peripheral pulses were 2+ and symmetric. Spine patient has significant discomfort to the sacral spine and has significant pain rolling [id number] and over the lower part of the spine. Neuro: Awake alert oriented to person place and time. There are no acute new gross focal sensory motor deficits. Patient has intact sensation all the way down to both feet and toes. Degenerative reflexes were 1+ and symmetric. His strength is symmetric is diminished but he has significant pain to the lower extremities upon use of musculature. Results CBC & Chem 7: 10/15/17:10/15/17: Labs: Abnormal Lab Results - Last 24 Hours (Table) 10/15/17 10/15/17 Range/Units : Hct 36.6 L (39.0-53.0) % Plt Count 533 H (150-450) k/uL ESR 69 H (0-15) mm/hr Potassium 3.3 L (3.5-5.1) mmol/L Creatinine 0.60 L (0.66-1.25) mg/dL Glucose 125 H (74-99) mg/dL ALT 19 L (21-72) U/L C-Reactive Protein 52.2 H (<10.0) mg/L Laboratory Results WBC 5.8 k/uL (3.8-10.6) 10/15/17: RBC 4.42 m/uL (4.30-5.90) 10/15/17:30 Hgb 13.2 gm/dL (13.0-17.5) 10/15/17: Hct 36.6 % (39.0-53.0) L 10/15/17: MCV 83.0 fL (80.0-100.0) D 10/15/17: MCH 29.9 pg (25.0-35.0) 10/15/17: MCHC 36.0 g/dL (31.0-37.0) 10/15/17 RDW 13.2 % (11.5-15.5) 10/15/17 09:30 Plt Count 533 k/uL (150-450) H 10/15/17 09:30 Neutrophils % 58 % 10/15/17 09:30 Lymphocytes % 30 % 10/15/17 09:30 Monocytes % 5 % 10/15/17 09:30 Eosinophils % 3 % 10/15/17 09:30 Basophils % 1 % 10/15/17 09:30 Neutrophils # 3.3 k/uL (1.3-7.7) 10/15/17 09:30 Lymphocytes # 1.7 k/uL (1.0-4.8) 10/15/17 09:30 Monocytes # 0.3 k/uL (0-1.0) 10/15/17 09:30 Eosinophils # 0.2 k/uL (0-0.7) 10/15/17 09:30 Basophils # 0.0 k/uL (0-0.2) 10/15/17 09:30 Hyperchromasia Slight 10/15/17 09:30 ESR 69 mm/hr (0-15) H 10/15/17 09:30 PT 10.2 sec (9.0-12.0) 10/15/17 09:30 INR 1.0 (<1.2) 10/15/17 09:30 APTT 23.9 sec (22.0-30.0) 10/15/17 09:30 Sodium 139 mmol/L (137-145) 10/15/17 09:30 Potassium 3.3 mmol/L (3.5-5.1) L 10/15/17 09:30 Chloride 101 mmol/L (98-107) 10/15/17 09:30 Carbon Dioxide 25 mmol/L (22-30) 10/15/17 09:30 Anion Gap 13 mmol/L 10/15/17 09:30 BUN 13 mg/dL (9-20) 10/15/17 09:30 Creatinine 0.60 mg/dL (0.66-1.25) L 10/15/17 09:30 Est GFR (CKD-EPI)AfAm >90 (>60 ml/min/1.73 sqM) 10/15/17 09:30 Est GFR (CKD-EPI)NonAf >90 (>60 ml/min/1.73 sqM) 10/15/17 09:30 Glucose 125 mg/dL (74-99) H 10/15/17 09:30 Plasma Lactic Acid [place] 2.0 mmol/L (0.7-2.0) 10/15/17 09:30 Calcium 9.6 mg/dL (8.4-10.2) 10/15/17 09:30 Total Bilirubin 0.3 mg/dL (0.2-1.3) 10/15/17:30 AST 20 U/L (17-59) 10/15/17:30 ALT 19 U/L (21-72) L 10/15/17:30 Alkaline Phosphatase 84 U/L (38-126) 10/15/17:30 C-Reactive Protein 52.2 mg/L (<10.0) H 10/15/17:30 Total Protein 6.7 g/dL (6.3-8.2) 10/15/17:30 Albumin 3.6 g/dL (3.5-5.0) 10/15/17 09:30 Comments: Outpatient MRI of spine shows evidence of the significant L2-L3 discitis with osteomyelitis and paraspinous fluid collection consistent with abscess. Assessment and Plan (1) Discitis of sacral region Narrative/Plan: 47-year-old male presents to Hospital clinic call from his physician because of the markedly abnormal MRI of the sacral spine that was performed because of his progressive and severe back pain. He has noted he has a history of falling through a roof nearly 20 years ago and has had chronic back pain since point in time. Is also difficulties with his calcaneal fracture and some chronic pain there. He has had great difficulties with his psychiatric health with PTSD, chronic anxiety and bipolar disorder, and polysubstance abuse including injection drug use. Earlier this year he did develop a right antecubital abscess that required incision and drainage in the emergency center. At this time I'm concerned that his injection drug use is a portal of entry for bacteria that and seated into his spine that was abnormal from his prior disease state. He now has evidence of destruction of the L2-L3 disc as well as osteomyelitis and paraspinous fluid collection consistent with abscess. I have communicated directly with the orthopedic spine surgeon, and have asked for his input. I'm concerned that he will need a surgical debridement of this space and drainage of this abscess. Fortunately does not seem to have acute neurological defects at this point in time. The location of the abscess appears to be more anterior and constantly he may need a transfer to a higher level of care where neurosurgery is available in conjunction with general surgery for an anterior approach to the spine. For antibiotic therapy blood cultures obtained. Vancomycin and ceftazidime are given with his history of injection drug use with MRSA and Pseudomonas being the most significant pathogens of concern. Sed rate and CRP are elevated. Will add a nutritional supplement, multivitamin also be added. K pad for control of some of his discomforts. Pain control as per the primary service. We'll update his tetanus vaccine. His last HIV test was in June 2015 and this will be updated Current Visit: Yes Status: Acute Code(s): M46.48 - DISCITIS, UNSPECIFIED, SACRAL AND SACROCOCCYGEAL REGION SNOMED Code(s): 272210179 (2) Post traumatic stress disorder (PTSD) Current Visit: No Status: Chronic Priority: Medium Code(s): F43.10 - POST- TRAUMATIC STRESS DISORDER, UNSPECIFIED SNOMED Code(s): 07561769 (3) IV drug user Current Visit: Yes Status: Acute Code(s): F19.90 - OTHER PSYCHOACTIVE SUBSTANCE USE, UNSPECIFIED, UNCOMPLICATED SNOMED Code(s): 798445051
--- NOTE | 2017-10-15 18:45 | P.CNOR ---
History of Present Illness - [facility] Consult date: 10/15/17 Past Medical History Past Medical History: GERD/Reflux Additional Past Medical History / Comment(s): chronic back pain, Hepatitis C. History of Any Multi-Drug Resistant Organisms: None Reported Past Surgical History: Hernia Repair, Orthopedic Surgery Additional Past Surgical History / Comment(s): Right inguinal hernia repair WITH MESH, calcaneal fracture repair bilaterally in 1997 WITH HARDWARE, cyst removed from neck Past Anesthesia/Blood Transfusion Reactions: No Reported Reaction Past Psychological History: Anxiety, Bipolar, Depression, PTSD, Schizophrenia Additional Psychological History / Comment(s): Single , no children. Positive tobacco use no current alcohol use. Relates to heroin use last time was in August which point in time he had the abscess in his right antecubital. 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 No international travel. No current animal exposures. Has PTSD partly related to having his dog shot by the police. Patient has been incarcerated in the past for breaking into was store and stealing drugs. Smoking Status: Current every day smoker Past Alcohol Use History: Rare Additional Past Alcohol Use History / Comment(s): Patient is a smoker of one and half packs of cigarettes per day for 30-35 years. He does use marijuana off the streets. He has history of cocaine, crack, methamphetamines, heroin use and started using drugs at 11 years of age and gradually progressed to heroin. History of alcoholism with drinking a fifth and a 12 pack at a time. He is currently unemployed. He lives in an apartment by himself. Past Drug Use History: Heroin, IV Drug Use, Marijuana Additional Drug Use History / Comment(s): Pt. admits to using heroin/fentanyl " A MONTH ago. And Marijuana about 3 days ago." - Past Family History Father Additional Family Medical History / Comment(s): Dad is alive at age 84 with hearing problems. Mother Family Medical History: Diabetes Mellitus Additional Family Medical History / Comment(s): Mother at age 73 with history of multiple CVAs and diabetes. Brother(s) Additional Family Medical History / Comment(s): Ration has 3 brothers and one half-brother. One has history of HIV, one has been in fci, one has history of rheumatic fever and bipolar. He states all brothers have history of substance abuse. Sister(s) Additional Family Medical History / Comment(s): Patient had 4 sisters. One at age 37 and had cerebral palsy and muscular dystrophy. One sister from alcoholism and drug abuse. He does not have any children. Medications and Allergies Home Medications Medication Instructions Recorded Confirmed Type Multivitamins, Thera [Multivitamin 1 tab PO DAILY 05/21/17 10/15/17 History (formulary)] Ibuprofen [Motrin] 600 mg PO Q6HR PRN #20 tab 09/30/17 10/15/17 Rx Cyclobenzaprine [Flexeril] 10 mg PO TID #12 tab 10/03/17 10/15/17 Rx Allergies Allergy/AdvReac Type Severity Reaction Status Date / Time tramadol HCl [From [facility]] Allergy Rash/Hives Verified 10/15/17 11:35 Physical Examination Osteopathic Statement: *. No significant issues noted on an osteopathic structural exam other than those noted in the History and Physical/Consult. Results - Labs Labs: Abnormal Lab Results - Last 24 Hours (Table) 10/15/17 10/15/17 Range/Units 09:30 09:30 Hct 36.6 L (39.0-53.0) % Plt Count 533 H (150-450) k/uL ESR 69 H (0-15) mm/hr Potassium 3.3 L (3.5-5.1) mmol/L Creatinine 0.60 L (0.66-1.25) mg/dL Glucose 125 H (74-99) mg/dL ALT 19 L (21-72) U/L C-Reactive Protein 52.2 H (<10.0) mg/L H & H 10/15/17 Range/Units 09:30 Hgb 13.2 (13.0-17.5) gm/dL Hct 36.6 L (39.0-53.0) % Coagulation 10/15/17 Range/Units 09:30 INR 1.0 (<1.2) Result Diagrams: 10/15/17 09:30 10/15/17 09:30 Assessment and Plan Assessment: L2/3 vertebral osteomyelitis, discitis with epidural abscess and spinal stenosis Pt images and chart have been reviewed. Patient will require continued antibiotic as well as surgical intervention for decompression at L2/3 with possible anterior corpectomy and stabilization at L2/ 3. We would not be able to provide anterior spinal surgery at our institution and I recommend that the patient be trnsferred to a higher level of care. I have contacted [facility] for transfer, and the patient has been accepted to Spine/Neurosurgery. He will proceed with transfer as soon as possible.
[2017-10-16] MEDS ORDERED: PANTOPRAZOLE 40 MG/10 ML VIAL IV SCH (09:00)
[2017-10-16] MEDS ORDERED: NICOTINE 21MG/24HR PATCH TRANSDERM SCH (09:00)
[2017-10-16] MEDS ORDERED: LEVOFLOXACIN 750MG-D5W PMX 750 MG in DEXTROSE/WATER 1 150ML.BAG IVPB SCH (09:00)
[2017-10-16] MEDS ORDERED: MULTIVITAMINS, THERA 1 EACH TAB PO SCH (12:00)
[2017-10-16 12:37] LABS: HIV AB P24 Non-Reactive (Non-Reactive); HIV P24 AG Non-Reactive (Non-Reactive)
== END 2017-10-15 20:46 | disposition other institution (70) | DRG 539 ==
LOC: EC 09:17 → 4MS4W 09:52
PROVIDERS: ADMIT Hospitalist; ATTEND Hospitalist
DX: M46.26 Osteomyelitis of vertebra, lumbar region (principal); G06.1 Intraspinal abscess and granuloma; F20.9 Schizophrenia, unspecified; E86.0 Dehydration; I10 Essential (primary) hypertension; R00.0 Tachycardia, unspecified; E87.6 Hypokalemia; F43.10 Post-traumatic stress disorder, unspecified; G89.29 Other chronic pain; K21.9 Gastro-esophageal reflux disease without esophagitis; F41.9 Anxiety disorder, unspecified; F31.9 Bipolar disorder, unspecified; F17.210 Nicotine dependence, cigarettes, uncomplicated; M48.061 Spinal stenosis, lumbar region without neurogenic claudication; B19.20 Unspecified viral hepatitis C without hepatic coma; F11.90 Opioid use, unspecified, uncomplicated; Z83.3 Family history of diabetes mellitus; Z81.8 Family history of other mental and behavioral disorders; Z81.3 Family history of other psychoactive substance abuse and dependence; Z82.3 Family history of stroke; Z87.19 Personal history of other diseases of the digestive system; Z86.19 Personal history of other infectious and parasitic diseases; Z79.899 Other long term (current) drug therapy; Z91.81 History of falling; Z79.1 Long term (current) use of non-steroidal anti-inflammatories (NSAID); Z88.1 Allergy status to other antibiotic agents
CPT/HCPCS: 36415; 80053; 83605; 85025; 85610; 85652; 85730; 86140; 87040; 87390; 90715; 96365; 96375; 99285

== ENCOUNTER 2017-12-13 14:27 | Emergency (ER) | payer OTHER ==
[2017-12-13 14:38] VITALS: BP 132/74; PULSE 97; RESP 18; TEMP 98.9
--- NOTE | 2017-12-13 15:53 | ED ---
General Adult HPI - General Chief complaint: Back Pain/Injury Stated complaint: Back pain/ Withdrawals Time Seen by Provider: 12/13/17 15:47 Source: patient, RN notes reviewed, old records reviewed Mode of arrival: EMS Limitations: no limitations - History of Present Illness Initial comments: 47-year-old male presents for medication refill. Patient has recent diagnosis of osteomyelitis and discitis of the lumbar spine. He does have chronic back pain. Secondary to insurance issues the patient has been unable to secure primary care physician until of this week which is 2 days from now. He has been out of his OxyContin. Has been taking Tylenol and Motrin with minimal relief of his chronic back pain. He does have some sensory changes in the lower extremity which she states are chronic and unchanged. He has not been running any fevers. He is currently on IV antibiotics through left upper extremity PICC line. He is currently being followed by infectious disease. He is scheduled for operation the lumbar spine after his course of IV antibiotics is complete. He has been able to establish primary care physician with Dr. Thayer later this week. - Related Data Home Medications Medication Instructions Recorded Confirmed Multivitamins, Thera [Multivitamin 1 tab PO DAILY 05/21/17 10/15/17 (formulary)] Previous Rx's Medication Instructions Recorded Ibuprofen [Motrin] 600 mg PO Q6HR PRN #20 tab 09/30/17 Cyclobenzaprine [Flexeril] 10 mg PO TID #12 tab 10/03/17 Hydrocodone/Acetaminophen [[place] 1 tab PO Q6H PRN 3 Days #12 tab 12/13/17 10-325] Allergies Allergy/AdvReac Type Severity Reaction Status Date / Time tramadol HCl [From Ultra] Allergy Rash/Hives Verified 12/13/17 14:37 Review of Systems ROS Statement: Those systems with pertinent positive or pertinent negative responses have been documented in the HPI. ROS Other: All systems not noted in ROS Statement are negative. Past Medical History Past Medical History: GERD/Reflux Additional Past Medical History / Comment(s): chronic back pain, Hepatitis C. History of Any Multi-Drug Resistant Organisms: None Reported Past Surgical History: Hernia Repair, Orthopedic Surgery Additional Past Surgical History / Comment(s): Right inguinal hernia repair WITH MESH, calcaneal fracture repair bilaterally in 1997 WITH HARDWARE, cyst removed from neck Past Anesthesia/Blood Transfusion Reactions: No Reported Reaction Past Psychological History: Anxiety, Bipolar, Depression, PTSD, Schizophrenia Smoking Status: Current every day smoker Past Alcohol Use History: Rare Past Drug Use History: Heroin, IV Drug Use, Marijuana - Past Family History Father Additional Family Medical History / Comment(s): Dad is alive at age 84 with hearing problems. Mother Family Medical History: Diabetes Mellitus Additional Family Medical History / Comment(s): Mother at age 73 with history of multiple CVAs and diabetes. Brother(s) Additional Family Medical History / Comment(s): Ration has 3 brothers and one half-brother. One has history of HIV, one has been in shelter, one has history of rheumatic fever and bipolar. He states all brothers have history of substance abuse. Sister(s) Additional Family Medical History / Comment(s): Patient had 4 sisters. One at age 37 and had cerebral palsy and muscular dystrophy. One sister from alcoholism and drug abuse. He does not have any children. General Exam Limitations: no limitations General appearance: alert, in no apparent distress Head exam: Present: atraumatic, normocephalic Eye exam: Present: normal appearance, PERRL ENT exam: Present: normal exam Neck exam: Present: normal inspection. Absent: tenderness, meningismus Respiratory exam: Present: normal lung sounds bilaterally. Absent: respiratory distress Cardiovascular Exam: Present: regular rate, normal rhythm GI/Abdominal exam: Present: soft. Absent: distended, tenderness Extremities exam: Present: normal inspection, normal capillary refill. Absent: pedal edema, calf tenderness Back exam: Present: paraspinal tenderness, vertebral tenderness (Lumbar spine) Neurological exam: Present: alert, oriented X3, CN II-XII intact, normal gait, motor sensory deficit, reflexes normal Psychiatric exam: Present: normal affect, normal mood Skin exam: Present: warm, dry, intact. Absent: cyanosis, diaphoretic Course Vital Signs 12/13/17 14:33 Temperature 98.9 F Pulse Rate 97 Respiratory 18 Rate Blood Pressure 132/74 Medical Decision Making - Medical Decision Making 47-year-old male with chronic low back pain and current diagnosis of osteomyelitis and discitis of the lumbar spine. MRI records are reviewed. Patient is on IV antibiotics his being followed by infectious disease. He's been afebrile and otherwise doing well with the exception of needing a refill on his pain medication. He is given a prescription for nor for the next 3. He has follow-up with his new primary care physician on . Disposition Clinical Impression: Discitis of lumbar region, Osteomyelitis Disposition: HOME SELF-CARE Condition: Fair Instructions: Osteomyelitis (ED), Chronic Back Pain (ED) Prescriptions: Hydrocodone/Acetaminophen [[place] 10-325] 1 tab PO Q6H PRN 3 Days #12 tab PRN Reason: Pain Is patient prescribed a controlled substance at d/c from ED?: Yes If prescribed controlled substance>3 days was MAPS reviewed?: Yes When asked, does pt state using other controlled substances?: No Referrals: Real Thayer MD [Primary Care Provider] - 1-2 days Marii Cristina MD [STAFF PHYSICIAN] - 1-2 days Time of Disposition: 15:53
== END 2017-12-13 16:05 | disposition home or self-care (01) ==
LOC: EC 14:27
DX: M46.46 Discitis, unspecified, lumbar region (principal); M86.9 Osteomyelitis, unspecified; F17.200 Nicotine dependence, unspecified, uncomplicated; Z98.890 Other specified postprocedural states; Z88.5 Allergy status to narcotic agent
CPT/HCPCS: 99284

== ENCOUNTER 2017-12-22 15:26 | Emergency (ER) | payer OTHER ==
[2017-12-22 15:32] VITALS: BP 116/75; PULSE 99; RESP 20; TEMP 98.3
[2017-12-22] MEDS ORDERED: HYDROcodone/APAP 10-325MG 1 EACH TAB PO ONE (15:44)
--- NOTE | 2017-12-22 15:49 | ED ---
Back Pain HPI - General Chief Complaint: Back Pain/Injury Stated Complaint: pain Time Seen by Provider: 12/22/17 15:34 Source: patient, RN notes reviewed Limitations: no limitations - History of Present Illness Initial Comments: This a 47-year-old male presents emergency Department chief complaint of back pain. Patient has cystitis osteomyelitis. Patient states that he was admitted to the hospital. He currently is still on PICC line antibiotics. Patient was at [facility] on the leg for rehab states that he was seen Dr. Zee there and was getting pain medications but states that when he was discharged. He did accept his insurance outpatient. Patient states that he saw Dr. Thayer with Dr. Pickett on recommending pain meds told him that he has to see pain management. Patient states he has an appointment on January 02 2:30. Patient states that he was here approximately one week ago and stretches pain medications as far as he can. He states that pain management and his PCP and Dr. Olivares told him come emergency department for pain medication. Patient understands that we under the same laws as his other providers. - Related Data Home Medications Medication Instructions Recorded Confirmed Multivitamins, Thera [Multivitamin 1 tab PO DAILY 05/21/17 12/13/17 (formulary)] Acetaminophen [Tylenol] 325 mg PO Q4H 12/13/17 12/13/17 Melatonin 3 mg PO HS 12/13/17 12/13/17 Methocarbamol [Robaxin] 500 mg PO TID 12/13/17 12/13/17 clonazePAM [KlonoPIN] 0.5 mg PO BID 12/13/17 12/13/17 oxyCODONE ER [OxyCONTIN 10MG E.R] 10 mg PO Q12HR 12/13/17 12/13/17 oxyCODONE HCL 15 mg PO Q4HR PRN 12/13/17 12/13/17 Previous Rx's Medication Instructions Recorded Ibuprofen [Motrin] 600 mg PO Q6HR PRN #20 tab 09/30/17 Hydrocodone/Acetaminophen [[place] 1 tab PO Q6H PRN 3 Days #12 tab 12/13/17 10-325] Hydrocodone/Acetaminophen [[place] 1 tab PO Q4-6H PRN #18 tab 12/22/17 5-325] Allergies Allergy/AdvReac Type Severity Reaction Status Date / Time tramadol HCl [From [facility]] Allergy Rash/Hives Verified 12/22/17 15:32 Review of Systems ROS Statement: Those systems with pertinent positive or pertinent negative responses have been documented in the HPI. ROS Other: All systems not noted in ROS Statement are negative. Past Medical History Past Medical History: GERD/Reflux Additional Past Medical History / Comment(s): chronic back pain, Hepatitis C. Osteomylitis in lower back. History of Any Multi-Drug Resistant Organisms: None Reported Past Surgical History: Hernia Repair, Orthopedic Surgery Additional Past Surgical History / Comment(s): Right inguinal hernia repair WITH MESH, calcaneal fracture repair bilaterally in 1997 WITH HARDWARE, cyst removed from neck Past Anesthesia/Blood Transfusion Reactions: No Reported Reaction Past Psychological History: Anxiety, Bipolar, Depression, PTSD, Schizophrenia Smoking Status: Current every day smoker Past Alcohol Use History: Rare Past Drug Use History: Heroin, IV Drug Use, Marijuana - Past Family History Father Additional Family Medical History / Comment(s): Dad is alive at age 84 with hearing problems. Mother Family Medical History: Diabetes Mellitus Additional Family Medical History / Comment(s): Mother at age 73 with history of multiple CVAs and diabetes. Brother(s) Additional Family Medical History / Comment(s): Ration has 3 brothers and one half-brother. One has history of HIV, one has been in residential, one has history of rheumatic fever and bipolar. He states all brothers have history of substance abuse. Sister(s) Additional Family Medical History / Comment(s): Patient had 4 sisters. One at age 37 and had cerebral palsy and muscular dystrophy. One sister from alcoholism and drug abuse. He does not have any children. General Exam Limitations: no limitations General appearance: alert, in no apparent distress Head exam: Present: atraumatic, normocephalic, normal inspection Respiratory exam: Present: normal lung sounds bilaterally. Absent: respiratory distress, wheezes, rales, rhonchi, stridor Cardiovascular Exam: Present: regular rate, normal rhythm, normal heart sounds. Absent: systolic murmur, diastolic murmur, rubs, gallop, clicks Back exam: Present: normal inspection, tenderness. Absent: full ROM Skin exam: Present: warm, dry, intact, normal color. Absent: rash Course Vital Signs 12/22/17 15:27 Temperature 98.3 F Pulse Rate 99 Respiratory 20 Rate Blood Pressure 116/75 O2 Sat by Pulse 99 Oximetry Medical Decision Making - Medical Decision Making Had a long conversation the patient regarding pain meds. Patient's understand that there are new loss regarding pain meds. He states that he'll make the prescription glasses long as possible. I did perform maps which showed that he received pain medication from Dr. Zee and Dr. Cuevas. Patient informed that he will receive a prescription here that he needs to try and make meds last as long as possible and to talk to his PCP again about bridging the gap from the ER to pain management. Disposition Clinical Impression: Osteomyelitis, Lumbar back pain Disposition: HOME SELF-CARE Condition: Stable Instructions: Chronic Back Pain (ED) Additional Instructions: Please return to the Emergency Department if symptoms worsen or any other concerns. Prescriptions: Hydrocodone/Acetaminophen [[place] 5-325] 1 tab PO Q4-6H PRN #18 tab PRN Reason: Pain Is patient prescribed a controlled substance at d/c from ED?: Yes When asked, does pt state using other controlled substances?: No If prescribed controlled substance>3 days was MAPS reviewed?: Prescribed <3 Days If opioid is for acute pain is fill amount 7 days or less?: Yes Referrals: Real Thayer MD [Primary Care Provider] - 1-2 days Time of Disposition: 15:48
== END 2017-12-22 16:01 | disposition home or self-care (01) ==
LOC: EC 15:26
DX: M46.26 Osteomyelitis of vertebra, lumbar region (principal); F31.9 Bipolar disorder, unspecified; F41.9 Anxiety disorder, unspecified; F43.10 Post-traumatic stress disorder, unspecified; F20.9 Schizophrenia, unspecified; F17.200 Nicotine dependence, unspecified, uncomplicated; Z86.19 Personal history of other infectious and parasitic diseases; Z79.891 Long term (current) use of opiate analgesic; Z79.899 Other long term (current) drug therapy; Z88.6 Allergy status to analgesic agent
CPT/HCPCS: 99283

== ENCOUNTER 2017-12-26 12:28 | Emergency (ER) | payer OTHER ==
[2017-12-26 13:10] VITALS: BP 113/79; PULSE 97; RESP 18; TEMP 97.8
--- NOTE | 2017-12-26 13:44 | ED ---
Back Pain HPI - General Chief Complaint: Back Pain/Injury Stated Complaint: Back Pain Time Seen by Provider: 12/26/17 13:12 Source: patient, RN notes reviewed Limitations: physical limitation - History of Present Illness Initial Comments: This is a 47-year-old male who presents to the emergency department with chief complaint of acute on chronic back pain. Patient states that he has been coming to the emergency department every few days for prescriptions of pain medication due to his chronic back pain. 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 He states that he has been referred to the emergency department for pain medication by his primary care provider and infectious disease doctor. Patient denies any new injuries or trauma. He states that he is now experiencing some withdrawals as he took his last pill yesterday morning. Patient was given a prescription for [place] 4 days ago. This consisted of 18 pills. Denies fevers or chills, chest pain shortness of breath, abdominal pain, nausea or vomiting. - Related Data Home Medications Medication Instructions Recorded Confirmed Acetaminophen [Tylenol Extra 500 mg PO TID PRN 12/22/17 12/22/17 Strength] DAPTOmycin [Cubicin] 7.5 mg IV DAILY 12/22/17 12/22/17 Naproxen Sodium [Aleve] 220 mg PO Q12HR PRN 12/22/17 12/22/17 Previous Rx's Medication Instructions Recorded Ibuprofen [Motrin] 600 mg PO Q6HR PRN #20 tab 09/30/17 Hydrocodone/Acetaminophen [[place] 1 tab PO Q4-6H PRN #18 tab 12/22/17 5-325] Allergies Allergy/AdvReac Type Severity Reaction Status Date / Time tramadol HCl [From Ultram] Allergy Rash/Hives Verified 12/26/17 13:10 Review of Systems ROS Statement: Those systems with pertinent positive or pertinent negative responses have been documented in the HPI. ROS Other: All systems not noted in ROS Statement are negative. Past Medical History Past Medical History: GERD/Reflux Additional Past Medical History / Comment(s): chronic back pain, Hepatitis C. Osteomylitis in lower back. History of Any Multi-Drug Resistant Organisms: None Reported Past Surgical History: Hernia Repair, Orthopedic Surgery Additional Past Surgical History / Comment(s): Right inguinal hernia repair WITH MESH, calcaneal fracture repair bilaterally in 1997 WITH HARDWARE, cyst removed from neck Past Anesthesia/Blood Transfusion Reactions: No Reported Reaction Past Psychological History: Anxiety, Bipolar, Depression, PTSD, Schizophrenia Smoking Status: Current every day smoker Past Alcohol Use History: Rare Past Drug Use History: Heroin, IV Drug Use, Marijuana - Past Family History Father Additional Family Medical History / Comment(s): Dad is alive at age 84 with hearing problems. Mother Family Medical History: Diabetes Mellitus Additional Family Medical History / Comment(s): Mother at age 73 with history of multiple CVAs and diabetes. Brother(s) Additional Family Medical History / Comment(s): Ration has 3 brothers and one half-brother. One has history of HIV, one has been in intermediate, one has history of rheumatic fever and bipolar. He states all brothers have history of substance abuse. Sister(s) Additional Family Medical History / Comment(s): Patient had 4 sisters. One at age 37 and had cerebral palsy and muscular dystrophy. One sister from alcoholism and drug abuse. He does not have any children. General Exam - General Exam Comments Initial Comments: General: Awake and alert, well-developed; in no apparent distress. HEENT: Head atraumatic, normocephalic. Pupils are equal, round and reactive to light. Extraocular movements intact. Oropharynx moist without erythema or exudate. Neck: Supple. Normal ROM. Cardiovascular: Regular rate and rhythm. No murmurs, rubs or gallops. Chest symmetrical. Respiratory: Lungs clear to auscultation bilaterally. No wheezes, rales or rhonchi. Normal respiratory effort with no use of accessory muscles. Musculoskeletal: Normal ROM, no tenderness bilateral upper and lower extremities. Ambulating by pushing a wheelchair. Skin: [place], warm and dry without rashes or lesions. Neurological: Alert and oriented x3. CN II-XII grossly intact. Speech is fluent and answers are appropriate. No focal neuro deficits. Psychiatric: Normal mood and affect. No overt signs of depression or anxiety noted. Limitations: physical limitation Back exam: Present: normal inspection, full ROM, paraspinal tenderness (lumbar) . Absent: vertebral tenderness Course Vital Signs 12/26/17 13:08 Temperature 97.8 F Pulse Rate 97 Respiratory 18 Rate Blood Pressure 113/79 O2 Sat by Pulse 100 Oximetry Medical Decision Making - Medical Decision Making This is a 47-year-old male who presents to the emergency department with chief complaint of acute on chronic back pain. Patient requests a prescription for pain medication until he is able to follow-up with his painting supervisor on January 02. MAPS was reviewed and patient was given a prescription for 18 [place] on December 22. He has also had 5 other prescriptions for narcotics in the past one month. This was discussed with attending physician, Dr. Brand. Patient informed that he is not going to be receiving any narcotic prescriptions through the emergency department. Patient requested to see attending physician. Dr. Brand spoke with patient and told him that he would not be receiving any narcotic prescriptions. Patient then walked out of the emergency department. Disposition Clinical Impression: Lumbar back pain Disposition: HOME SELF-CARE Condition: Good Instructions: Chronic Back Pain (ED) Additional Instructions: Please follow up with primary care provider within 1-2 days. Return to emergency department if symptoms should worsen or any concerns arise. Is patient prescribed a controlled substance at d/c from ED?: No Referrals: Real Thayer MD [Primary Care Provider] - 1-2 days Time of Disposition: 14:09
== END 2017-12-26 14:12 | disposition home or self-care (01) ==
LOC: EC 12:28
DX: G89.29 Other chronic pain (principal); M54.5 Low back pain; F17.200 Nicotine dependence, unspecified, uncomplicated; Z86.19 Personal history of other infectious and parasitic diseases; Z88.5 Allergy status to narcotic agent
CPT/HCPCS: 99283

== ENCOUNTER 2017-12-29 10:42 | Inpatient (IN) | payer OTHER ==
[2017-12-29] MEDS ORDERED: ACETAMINOPHEN TAB 500 MG TAB PO PRN (14:38)
[2017-12-29 14:53] VITALS: BMI 20.8
[2017-12-29] MEDS: IBUPROFEN 600 MG TAB PO PRN ×2 (15:01→20:45)
[2017-12-29 15:46] LABS: Basophils % (A) 0 %; Eosinophils # (A) 0.5 k/uL (0-0.7); Eosinophils % (A) 9 %; HCT 39.3 % (39.0-53.0); HGB 13.2 gm/dL (13.0-17.5); Lymphocytes # (A) 1.4 k/uL (1.0-4.8); Lymphocytes % (A) 27 %; MCH 30.9 pg (25.0-35.0); MCHC 33.7 g/dL (31.0-37.0); MCV 91.9 fL (80.0-100.0); Mean Platelet Volume 6.5; Monocytes # (A) 0.3 k/uL (0-1.0); Monocytes % (A) 6 %; Neutrophils # (A) 2.9 k/uL (1.3-7.7); Neutrophils % (A) 56 %; Platelet Count 235 k/uL (150-450); RBC 4.28 m/uL (4.30-5.90); RDW 15.7 % (11.5-15.5); WBC 5.1 k/uL (3.8-10.6)
[2017-12-29 15:57] LABS: Anion Gap 12 mmol/L; Blood Urea Nitrogen 11 mg/dL (9-20); Calcium 9.6 mg/dL (8.4-10.2); Carbon Dioxide 25 mmol/L (22-30); Chloride 109 mmol/L (98-107); Glucose 87 mg/dL (74-99); Potassium 3.9 mmol/L (3.5-5.1); Sodium 146 mmol/L (137-145)
[2017-12-29] MEDS ORDERED: DAPTOmycin 500 MG in SODIUM CHLORIDE 0.9% 50 ML IVPB SCH (16:00)
[2017-12-29] MEDS: HYDROcodone/APAP 5-325MG 1 EACH TAB PO PRN ×2 (16:19→21:57)
[2017-12-29] MEDS: NICOTINE 14MG/24HR PATCH TRANSDERM SCH (16:22)
--- NOTE | 2017-12-29 22:40 | P.HPIM ---
History of Present Illness H&P Date: 12/29/17 Chief Complaint: Back pain Patient is a 47-year-old male with a known history of IVDU, hepatitis C, cocaine use, chronic back pain, PTSD/anxiety/bipolar disorder and osteomyelitis in the lower lumbar disc in August 2017 status post antibiotic IV therapy was admitted to the hospital due to discitis and failed outpatient therapy. Patient follows with Dr. Cristina as an outpatient. Patient was previously admitted to [facility]. MRI of the lumbar spine on 12/29/2017 showed discitis at L2-L3 level with 50% loss of the L3 vertebral body and 30% loss of the L2 vertebral body height. Small epidural abscess is suspected posterior to the L3 vertebral body. 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 Currently patient denied any complaints of chest pain or shortness of breath. No leg weakness or loss of sensation or paresthesias. No fever no chills. No nausea vomiting or abdominal pain. Denied any history of infected endocarditis. HIV antigen/ antibody negative recently.. Patient was started on antibiotics in the form of daptomycin as per ID recommendations. Review of Systems Constitutional: Patient denies any fever or chills . No generalized weakness or weight loss. Abdomen: Patient denied nausea vomiting and diarrhea and abdominal pain. Cardiovascular: Patient denies any chest pain or short of breath no palpitations. Respiratory: patient denied any cough is from production. No shortness of breath Neurologic: Patient denied any numbness or tingling headache. Musculoskeletal: Patient denies any complaints of joint swelling or deformity. lower back pain Skin: Negative Psychiatric: Negative Endocrine: No heat or cold intolerance. No recent weight gain. Genitourinary: No dysuria or hematuria. All other 14 point ROS negative except the above Past Medical History Past Medical History: GERD/Reflux Additional Past Medical History / Comment(s): chronic back pain, Hepatitis C. Osteomylitis in lower back, degenerative disc disease. History of Any Multi-Drug Resistant Organisms: None Reported Past Surgical History: Hernia Repair, Orthopedic Surgery Additional Past Surgical History / Comment(s): Right inguinal hernia repair WITH MESH, calcaneal fracture repair bilaterally in 1997 WITH HARDWARE, cyst removed from neck. Past Anesthesia/Blood Transfusion Reactions: No Reported Reaction Past Psychological History: Anxiety, Bipolar, Depression, PTSD, Schizophrenia Additional Psychological History / Comment(s): Single , no children. Positive tobacco use no current alcohol use. Relates to heroin use last time was in August which point in time he had the abscess in his right antecubital. 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 No experience. No international travel. No current animal exposures. Has PTSD partly related to having his dog shot by the police. Patient has been incarcerated in the past for breaking into was store and stealing drugs. Smoking Status: Current every day smoker Past Alcohol Use History: Rare Additional Past Alcohol Use History / Comment(s): Patient is a smoker of half packs of cigarettes per day for 30-35 years. He does use marijuana off the streets occasionally. He has history of cocaine, crack, methamphetamines, heroin use and started using drugs at 11 years of age and gradually progressed to heroin. History of alcoholism with drinking a fifth and a 12 pack at a time. He is currently unemployed. He lives in an apartment by himself. Past Drug Use History: Cocaine, Heroin, IV Drug Use, Marijuana, Methamphetamine Additional Drug Use History / Comment(s): Pt. reports using marijuana 2 days ago on 12/27/17. - Past Family History Father Additional Family Medical History / Comment(s): Dad is alive at age 85 with hearing problems and scolosis. Mother Family Medical History: Diabetes Mellitus Additional Family Medical History / Comment(s): Mother at age 73 with history of multiple CVAs, arterial disease and diabetes. Brother(s) Additional Family Medical History / Comment(s): Patient has 3 brothers and one half-brother. One has history of HIV, one has been in assisted, one has history of rheumatic fever and bipolar. He states all brothers have history of substance abuse. Sister(s) Additional Family Medical History / Comment(s): Patient had 4 sisters. One at age 37 and had cerebral palsy and muscular dystrophy. One sister from alcoholism and drug abuse. He does not have any children. Medications and Allergies Home Medications Medication Instructions Recorded Confirmed Type Ibuprofen [Motrin] 600 mg PO Q6HR PRN #20 tab 09/30/17 12/29/17 Rx Acetaminophen [Tylenol Extra 1,000 mg PO Q4-6H PRN 12/22/17 12/29/17 History Strength] Allergies Allergy/AdvReac Type Severity Reaction Status Date / Time tramadol HCl [From Ultram] Allergy Rash/Hives Verified 12/29/17 13:02 Physical Exam Vitals: Intake and Output 12/28/17 12/29/17 12/29/17 22:59 06:59 14:59 Other: Voiding Method Toilet Weight 55.792 kg PHYSICAL EXAMINATION: Patient is lying in the bed comfortably, no acute distress, awake alert and oriented.. HEENT: Normocephalic. Neck is supple. Pupils reactive. Nostrils clear. Oral cavity is moist. Ears reveal no drainage. Neck reveals no JVD, carotid bruits, or thyromegaly. CHEST EXAMINATION: Trachea is central. Symmetrical expansion. Lung escalante clear to auscultation and percussion. CARDIAC: Normal S1, S2 with no gallops. No murmurs ABDOMEN: Soft. Bowel sounds normal. No organomegaly. No abdominal bruits. Extremities: reveal no edema. No clubbing or cyanosis Neurologically awake, alert, oriented x3 with well-coordinated movements. No focal deficits noted Skin: No rash or skin lesions. Psychiatric: Cooperative. Nonsuicidal Musculoskeletal: No joint swelling or deformity. Normal range of motion. Results CBC & Chem 7: 12/29/17 15:29 12/29/17 15:29 Thrombosis Risk Factor Assmnt - DVT/VTE Prophylaxis DVT/VTE Prophylaxis: Pharmacologic Prophylaxis ordered - Choose All That Apply Any of the Below Risk Factors Present?: No Other Risk Factors: No Other congenital or acquired thrombophilia - If yes, enter type in comment: No Thrombosis Risk Factor Assessment Level: Very Low Risk Assessment and Plan Assessment: Discitis with loss of L2-L3 vertebral body height and small epidural abscess . failed outpatient therapy Recent history of osteomyelitis in the lower back status post IV antibiotic therapy Chronic back pain Hepatitis C Degenerative disc disease GERD History of IVDU with steroid and cocaine, marijuana, methamphetamine use. Last marijuana use on 12/27/2017 Anxiety, Bipolar, Depression, PTSD, Schizophrenia Nicotine addiction DVT prophylaxis Plan: Patient be continued on pain management with Tylenol and Motrin. Current with antibiotic therapy with daptomycin. Orthopedic surgery was consulted. ID is following. Patient was counseled excessively for drug abuse and smoking cessation. Continue the current management and further recommendations based on the clinical course. Time with Patient: Greater than 30
[2017-12-29 23:12] VITALS: RESP 16
--- NOTE | 2017-12-29 23:29 | CONS ---
CONSULTATION DATE OF SERVICE: 12/29/2017 REASON FOR CONSULTATION: L2-L3 diskitis, failing outpatient antibiotic therapy. HISTORY OF PRESENT ILLNESS: The patient is a 47-year-old male with a past medical history significant for L2-L3 diskitis, for which the patient was initially evaluated at this facility back in September of 2017. Patient at that time was evaluated by Orthopedic Surgery on 10/15/2017, and subsequently patient was recommended to be transferred to [facility] for management of L2-L3 diskitis with concern about possible abscess. The patient at that facility had a CT-guided drainage of fluid and culture came back positive for oxacillin- sensitive Staph epi. The patient was treated with nafcillin and subsequently discharged home on cefazolin 2 grams q.8 hours to finish a 6-week course of therapy. While on cefazolin the patient developed a rash was discontinued and the patient was advised to be switched over to daptomycin 6 mg/kg to finish on 12/01/2017. The patient was evaluated in the outpatient setting by myself, as the patient was unable to follow up with his infectious disease physician at [facility]. The patient's CRP has normalized as well as the sed rate; however, the patient continues to complain of back pain and wants to be 100% sure before antibiotic is discontinued. The patient was continued on daptomycin in the outpatient setting. An MRI was scheduled. The patient did have an MRI completed this morning and the MRI was read by the radiologist with L2-L3 diskitis with loss of 50% height of the L2 and 30% of the L3 with concern about possible abscess. The patient has been complaining of more pain to the low back area. Pain is described to be sharp, almost 10/10, with some radiation to the left leg. Denies having any weakness or any bowel or bladder problem. Denies any high- grade fever. With these symptoms, especially with worsening of the MRI finding, the patient has been admitted directly to the hospital, as he has been on IV antibiotic for more than 2 months with worsening MRI finding, for possible evaluation by Orthopedics and possible transfer to [facility] for further management of the same. REVIEW OF SYSTEMS: CONSTITUTIONAL: Positive for weakness. Some chills, but denies any high-grade fever. EYES: No complaint. ENT: No complaint. RESPIRATORY: No complaint. CARDIOVASCULAR: No complaint. GENITOURINARY: No complaint. GASTROINTESTINAL: No complaint. MUSCULOSKELETAL: As per HPI. INTEGUMENTARY: No complaint. PSYCHOLOGICAL: No complaint. ENDOCRINE: No complaint. NEUROLOGIC: No complaint. PAST MEDICAL HISTORY: 1. Gastroesophageal reflux disease. 2. Chronic hepatitis. C. 3. L2-3 diskitis. PAST SURGICAL HISTORY: 1. Hernia repair: 2. Calcaneal fracture repair with hardware. 3. Cyst removed from the neck. PSYCHOLOGICAL HISTORY: Positive for anxiety, bipolar, depression, PTSD and schizophrenia. SOCIAL HISTORY: The patient is currently an everyday smoker. Smokes half a pack a day. Previous history of heroin and IV drug use. FAMILY HISTORY: Father is alive with some hearing problems. ALLERGIES: TRAMADOL. CURRENT MEDICATIONS: 1. Tylenol. 2. [place]. 3. Motrin. 4. Nicotine patch. PHYSICAL EXAMINATION: Blood pressure 117/75 with a pulse of 91, temperature 98.2. He is 98% on room air. General description is a middle-aged male lying in bed in no distress. No tachypnea or accessory muscle of respiration use. HEENT examination shows no pallor or scleral icterus. Oral mucosa membrane is moist. No pharyngeal erythema or thrush. NECK: Trachea is central. No thyromegaly. LUNGS: Unlabored breathing. Clear to auscultation anteriorly. No wheeze or crackle. HEART: S1, S2. Regular rate and rhythm. No added sound. ABDOMEN: Soft. No tenderness. No guarding or rigidity. EXTREMITIES: No edema of feet. SKIN EXAMINATION: No rash or mass palpable. Neurologically patient is awake, alert, oriented x3. Mood and affect normal. LABS: Hemoglobin is 13.2, white count 5.1 with BUN of 11, creatinine 0.75. DIAGNOSTIC IMPRESSION AND PLAN: Patient with persistent and worsening low back pain in a patient who has a history of L2 and L3 diskitis, now with MRI completed this morning that shows rather worsening with the possibility of a posterior paraspinal abscess, despite the patient being on antibiotics for more than 10 weeks, with concern about possible failing of the medical therapy and more likely will need some surgical intervention now to help heal up this infection as well as to control his pain. PLAN: 1. The patient will be given daptomycin at a higher dose; currently 8 mg/kg q.24. 2. Possible transfer to [facility] for evaluation by surgical team at that facility. Thank you for this consultation. Will follow this patient along with you. Plan of care discussed with the nurse practitioner for the admitting team. VERONICA / KEIRY: [id number] /
[2017-12-30] MEDS: IBUPROFEN 600 MG TAB PO PRN ×3 (02:51→14:17)
[2017-12-30] MEDS: HYDROcodone/APAP 5-325MG 1 EACH TAB PO PRN ×3 (04:05→14:17)
[2017-12-30 06:59] VITALS: BP 112/66; PULSE 76; TEMP 97.4
[2017-12-30 07:08] LABS: Basophils % (A) 1 %; Eosinophils # (A) 0.8 k/uL (0-0.7); Eosinophils % (A) 17 %; HCT 39.6 % (39.0-53.0); HGB 13.2 gm/dL (13.0-17.5); Lymphocytes # (A) 1.3 k/uL (1.0-4.8); Lymphocytes % (A) 29 %; MCH 30.7 pg (25.0-35.0); MCHC 33.3 g/dL (31.0-37.0); MCV 92.3 fL (80.0-100.0); Mean Platelet Volume 6.9; Monocytes # (A) 0.3 k/uL (0-1.0); Monocytes % (A) 6 %; Neutrophils % (A) 44 %; Platelet Count 222 k/uL (150-450); RBC 4.29 m/uL (4.30-5.90); RDW 15.8 % (11.5-15.5); WBC 4.5 k/uL (3.8-10.6)
[2017-12-30 07:16] LABS: Anion Gap 9 mmol/L; Blood Urea Nitrogen 14 mg/dL (9-20); Carbon Dioxide 22 mmol/L (22-30); Chloride 112 mmol/L (98-107); Glucose 92 mg/dL (74-99); Sodium 143 mmol/L (137-145)
[2017-12-30] MEDS: NICOTINE 14MG/24HR PATCH TRANSDERM SCH (07:40)
--- NOTE | 2017-12-30 09:14 | P.CNOR ---
History of Present Illness - [facility] Consult date: 12/30/17 Requesting physician: Ban Arguello Consult reason: low back pain, other (L2-3 discitis and left lower extremity radiculopathy) History of present illness: Patient is a very pleasant 47-year-old male who is seen and examined the bedside for further evaluation after consultation was placed for L2-3 discitis failing outpatient conservative treatment. Patient states he started to experience significant and severe back pain with pain to the left anterior thigh in August 2017. He states an MRI was obtained on 10/14/2017. He states he was called the next day and told to present to the hospital for further treatment. He was admitted at that time after being diagnosed with discitis. He was subsequently transferred to [facility] for further evaluation. He states they discussed surgical intervention at that time but opted not to proceed forward with surgery. He states he is unsure why. He was placed with a PICC line. He has been on IV antibiotic treatment since that time without significant improvement of the symptoms. He continues to follow with Dr. Cristina in the outpatient setting who is managing his PICC line and antibiotic treatment. He states he continues to have significant low back pain with pain radiating through his homeless and over the left anterior thigh to the knee. He denies any lower extremity weakness bilaterally. He was readmitted yesterday and a follow-up MRI was performed of the lumbar spine which showed evidence of L2-3 discitis with 50% loss of the L3 vertebral body and 30% loss of the L2 vertebral body with a small epidural abscess suspected posterior to the L3 vertebral level with apparent spinal canal stenosis. He states since being admitted to the hospital patient states he has been receiving [place] 5 mg/325 mg without significant relief of his symptoms. Documentation from medicine states patient has a known history of IV drug use, hepatitis C, cocaine use, chronic back pain, PTSD, anxiety, and bipolar disorder. Past Medical History Past Medical History: GERD/Reflux Additional Past Medical History / Comment(s): chronic back pain, Hepatitis C. Osteomylitis in lower back, degenerative disc disease. History of Any Multi-Drug Resistant Organisms: None Reported Past Surgical History: Hernia Repair, Orthopedic Surgery Additional Past Surgical History / Comment(s): Right inguinal hernia repair WITH MESH, calcaneal fracture repair bilaterally in 1997 WITH HARDWARE, cyst removed from neck. Past Anesthesia/Blood Transfusion Reactions: No Reported Reaction Past Psychological History: Anxiety, Bipolar, Depression, PTSD, Schizophrenia Additional Psychological History / Comment(s): Single , no children. Positive tobacco use no current alcohol use. Relates to heroin use last time was in August which point in time he had the abscess in his right antecubital. 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 No experience. No international travel. No current animal exposures. Has PTSD partly related to having his dog shot by the police. Patient has been incarcerated in the past for breaking into was store and stealing drugs. Smoking Status: Current every day smoker Past Alcohol Use History: Rare Additional Past Alcohol Use History / Comment(s): Patient is a smoker of half packs of cigarettes per day for 30-35 years. He does use marijuana off the streets occasionally. He has history of cocaine, crack, methamphetamines, heroin use and started using drugs at 11 years of age and gradually progressed to heroin. History of alcoholism with drinking a fifth and a 12 pack at a time. He is currently unemployed. He lives in an apartment by himself. Past Drug Use History: Cocaine, Heroin, IV Drug Use, Marijuana, Methamphetamine Additional Drug Use History / Comment(s): Pt. reports using marijuana 2 days ago on 12/27/17. - Past Family History Father Additional Family Medical History / Comment(s): Dad is alive at age 85 with hearing problems and scolosis. Mother Family Medical History: Diabetes Mellitus Additional Family Medical History / Comment(s): Mother at age 73 with history of multiple CVAs, arterial disease and diabetes. Brother(s) Additional Family Medical History / Comment(s): Patient has 3 brothers and one half-brother. One has history of HIV, one has been in residential, one has history of rheumatic fever and bipolar. He states all brothers have history of substance abuse. Sister(s) Additional Family Medical History / Comment(s): Patient had 4 sisters. One at age 37 and had cerebral palsy and muscular dystrophy. One sister from alcoholism and drug abuse. He does not have any children. Medications and Allergies Home Medications Medication Instructions Recorded Confirmed Type Ibuprofen [Motrin] 600 mg PO Q6HR PRN #20 tab 09/30/17 12/29/17 Rx Acetaminophen [Tylenol Extra 1,000 mg PO Q4-6H PRN 12/22/17 12/29/17 History Strength] Allergies Allergy/AdvReac Type Severity Reaction Status Date / Time tramadol HCl [From [facility]] Allergy Rash/Hives Verified 12/29/17 13:02 Physical Examination Physical exam: Patient is awake, alert, and oriented 3 Vital signs stable Good chest excursion with deep inspiration and expiration Abdomen soft nontender Examination of lumbar spine reveals skin is intact with no abrasions, lacerations, or bruises; no erythema, purulence or signs of infection Evidence of exaggerated protrusion of the spinous processes of the lumbar spine Dorsiflexion, plantarflexion, and extensor hallucis longus positive sustained bilaterally Lower extremity strength 5/5 bilaterally Straight leg test negative bilateral lower extremities Negative Lasegue's test bilaterally No signs or symptoms of DVT; no calf pain No pain with internal and external rotation of the hips bilaterally Neurovascularly intact Results Pertinent studies: MRI of the lumbar spine: L2-3 discitis with 50% loss of the L3 vertebral body and 30% loss of the L2 vertebral body with a small epidural abscess suspected posterior to the L3 vertebral level with apparent spinal canal stenosis. - Labs Labs: Abnormal Lab Results - Last 24 Hours (Table) 12/29/17 12/29/17 12/30/17 Range/Units 15:29 15:29 06:52 RBC 4.28 L 4.29 L (4.30-5.90) m/uL RDW 15.7 H 15.8 H (11.5-15.5) % Eosinophils # 0.8 H (0-0.7) k/uL Sodium 146 H (137-145) mmol/L Chloride 109 H (98-107) mmol/L Creatinine (0.66-1.25) mg/dL 12/30/17 Range/Units 06:52 RBC (4.30-5.90) m/uL RDW (11.5-15.5) % Eosinophils # (0-0.7) k/uL Sodium (137-145) mmol/L Chloride 112 H (98-107) mmol/L Creatinine 0.56 L (0.66-1.25) mg/dL H & H 12/29/17 12/30/17 Range/Units 15:29 06:52 Hgb 13.2 13.2 (13.0-17.5) gm/dL Hct 39.3 39.6 (39.0-53.0) % Result Diagrams: 12/30/17 06:52 12/30/17 06:52 Assessment and Plan Assessment: Assessment: L2-3 discitis with vertebral body height loss at L2 and L3 with small epidural abscess and spinal canal stenosis Low back pain Left lower extremity radiculopathy History of IV drug use, hepatitis C, cocaine use, chronic back pain, PTSD, anxiety, and bipolar disorder per documentation by medicine (1) Lumbar back pain with radiculopathy affecting left lower extremity Current Visit: Yes Status: Acute Code(s): M54.17 - RADICULOPATHY, LUMBOSACRAL REGION SNOMED Code(s): 646505534 (2) Discitis of lumbar region Current Visit: No Status: Acute Code(s): M46.46 - DISCITIS, UNSPECIFIED, LUMBAR REGION SNOMED Code(s): 856291935 (3) Lumbar back pain Current Visit: No Status: Acute Code(s): M54.5 - LOW BACK PAIN SNOMED Code (s): 714171614 Plan: Plan: 1. Patient has been discussed in significant detail with Dr. Bull Collazo. Imaging has been reviewed with him as well. Imaging has been discussed with the patient as well. Patient has had extensive conservative treatment in the outpatient setting with a PICC line and IV antibiotics for his L2-3 discitis. Patient was previously transferred to [facility] for further evaluation at which time surgical intervention was discussed but not performed. Patient is continued with IV antibiotics since that time without significant improvement of his symptoms. MRI of the lumbar spine performed yesterday does show evidence of discitis at L2-3 with bony destruction of L2 and L3 with a possible small epidural abscess and apparent spinal canal stenosis. Patient states his symptoms are not improving with conservative treatment. Patient is most likely a candidate for a anterior corpectomy with fusion of the lumbar spine at the levels of his discitis. This surgery is unable to be performed here at [facility]. We're recommending for him being transferred to a tertiary facility back to [facility] for further treatment and evaluation and to discuss the possibility of surgical intervention in greater detail as he has continued to fail conservative treatment. It was discussed with the patient in detail that if Dr. Cristina is able to come up with the plan with IV antibiotic treatment which would help alleviate his discitis he may continue to treat him as he feels appropriate. We do feel this patient is most likely a candidate for surgical intervention to his lumbar spine and feel transfer to a tertiary facility at [facility] would be the best option for him at this time. 2. Dr. Cristina in infectious disease and medicine will continue to follow patient closely 3. From an orthopedic spine standpoint, patient is cleared for transfer to [facility] and we are not currently planning for treatment or evaluation in the outpatient setting as he should continue to follow with the appropriate care providers currently treating his discitis Time with Patient: Greater than 30
--- NOTE | 2017-12-30 14:09 | PN ---
PROGRESS NOTE DATE OF SERVICE: 12/30/2017. REASON FOR FOLLOW UP: L2-3 diskitis with an abscess. INTERVAL HISTORY: The patient is currently afebrile, still complaining of pain into the lumbar spine area. The patient denies having any chest pain or shortness of breath or cough. No abdominal pain or any diarrhea. PHYSICAL EXAMINATION: Blood pressure 112/66, pulse of 76, temp is 97.4, he is 97% on room. General description is a middle-aged male, up in the chair in no distress. RESPIRATORY SYSTEM: Unlabored breathing, clear to auscultation anteriorly. HEART: S1, S2. Regular rate and rhythm. ABDOMEN: Soft, no tenderness. LABS: Hemoglobin 13.1, white count of 4.5, creatinine 0.56. DIAGNOSTIC IMPRESSION AND PLAN: Patient with L2-L3 diskitis with Staph epi, oxygen sensitive with subsequent development of rash to cefazolin. Currently on daptomycin, being on antibiotic for more than 10 weeks, still having abscess on the recent CT. May need followup with Ortho surgery at the [facility] for possible surgical decompression of this . Agree with the Ortho recommendation. Continue daptomycin at this point. All his questions were answered. MMODL / IJN: [id number] /
--- NOTE | 2018-01-08 23:28 | P.DS ---
Providers Date of admission: 12/29/17 11:56 Expected date of discharge: 12/30/17 Attending physician: Che Krause Consults: 12/29/17 13:00 Consult Physician Routine Consulting Provider: Marii Cristina Consult Reason/Comments: discitis, osteomyelitis Do you want consulting provider notified?: Yes Placement Type Exists?: Yes 12/29/17 13:01 Consult Physician Routine Consulting Provider: Srini Collazo Consult Reason/Comments: discitis Do you want consulting provider notified?: Yes Placement Type Exists?: Yes Primary care physician: [facility] Course: Discharge Diagnosis Discitis with loss of L2-L3 vertebral body height and small epidural abscess . failed outpatient therapy Recent history of osteomyelitis in the lower back status post IV antibiotic therapy Chronic back pain Hepatitis C Degenerative disc disease GERD History of IVDU with steroid and cocaine, marijuana, methamphetamine use. Last marijuana use on 12/27/2017 Anxiety, Bipolar, Depression, PTSD, Schizophrenia Nicotine addiction DVT prophylaxis Hospital course. Patient is a 47-year-old male with a known history of IVDU, hepatitis C, cocaine use, chronic back pain, PTSD/anxiety/bipolar disorder and osteomyelitis in the lower lumbar disc in August 2017 status post antibiotic IV therapy was admitted to the hospital due to discitis and failed outpatient therapy. Patient follows with Dr. Cristina as an outpatient. Patient was previously admitted to [facility]. MRI of the lumbar spine on 12/29/2017 showed discitis at L2-L3 level with 50% loss of the L3 vertebral body and 30% loss of the L2 vertebral body height. Small epidural abscess is suspected posterior to the L3 vertebral body. 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 Currently patient denied any complaints of chest pain or shortness of breath. No leg weakness or loss of sensation or paresthesias. No fever no chills. No nausea vomiting or abdominal pain. Denied any history of infected endocarditis. HIV antigen/ antibody negative recently.. Patient was started on antibiotics in the form of daptomycin as per ID recommendations. Patient is most likely a candidate for a anterior corpectomy with fusion of the lumbar spine at the levels of his discitis. This surgery is unable to be performed here at [facility]. Ortho recommended to be transferred to a tertiary facility back to [facility] for further treatment and evaluation and to discuss the possibility of surgical intervention in greater detail as he has continued to fail conservative treatment. Discussed with [facility] transfer team and is agreeable to be transferred to [facility]. PHYSICAL EXAMINATION: Patient is lying in the bed comfortably, no acute distress, awake alert and oriented.. HEENT: Normocephalic. Neck is supple. Pupils reactive. Nostrils clear. Oral cavity is moist. Ears reveal no drainage. Neck reveals no JVD, carotid bruits, or thyromegaly. CHEST EXAMINATION: Trachea is central. Symmetrical expansion. Lung escalante clear to auscultation and percussion. CARDIAC: Normal S1, S2 with no gallops. No murmurs ABDOMEN: Soft. Bowel sounds normal. No organomegaly. No abdominal bruits. Extremities: reveal no edema. No clubbing or cyanosis Neurologically awake, alert, oriented x3 with well-coordinated movements. No focal deficits noted Skin: No rash or skin lesions. Psychiatric: Cooperative. Nonsuicidal Musculoskeletal: No joint swelling or deformity. Normal range of motion. Vitals reviewed. Time taken >35min Patient Condition at Discharge: Serious Plan - Discharge Summary Discharge Rx Participant: No New Discharge Prescriptions: No Action Ibuprofen [Motrin] 600 mg PO Q6HR PRN #20 tab PRN Reason: Pain Acetaminophen [Tylenol Extra Strength] 1,000 mg PO Q4-6H PRN PRN Reason: Pain Discharge Medication List Ibuprofen [Motrin] 600 mg PO Q6HR PRN #20 tab 09/30/17 [Rx] Acetaminophen [Tylenol Extra Strength] 1,000 mg PO Q4-6H PRN 12/22/17 [History] Discharge Disposition: OTHER INSTITUTION NOT DEFINED
== END 2017-12-30 14:35 | disposition short-term general hospital (02) | DRG 551 ==
LOC: 5MS5E 11:56
PROVIDERS: ADMIT Internal Medicine; ATTEND Internal Medicine
DX: M46.46 Discitis, unspecified, lumbar region (principal); G06.1 Intraspinal abscess and granuloma; F17.210 Nicotine dependence, cigarettes, uncomplicated; F20.9 Schizophrenia, unspecified; F31.9 Bipolar disorder, unspecified; F12.90 Cannabis use, unspecified, uncomplicated; F10.20 Alcohol dependence, uncomplicated; F11.11 Opioid abuse, in remission; B19.20 Unspecified viral hepatitis C without hepatic coma; F43.10 Post-traumatic stress disorder, unspecified; G89.29 Other chronic pain; K21.9 Gastro-esophageal reflux disease without esophagitis; M48.061 Spinal stenosis, lumbar region without neurogenic claudication; Z83.3 Family history of diabetes mellitus; Z56.0 Unemployment, unspecified; Z60.2 Problems related to living alone; F41.9 Anxiety disorder, unspecified; Z82.3 Family history of stroke; Z81.3 Family history of other psychoactive substance abuse and dependence; Z88.5 Allergy status to narcotic agent; Z65.3 Problems related to other legal circumstances
CPT/HCPCS: 80048; 85025

== ENCOUNTER → 2017-12-29 | Outpatient (CLI) | payer OTHER ==
--- NOTE | 2017-12-29 07:29 | MR ---
EXAMINATION TYPE: MR lumbar spine wo/w con DATE OF EXAM: 12/29/2017 COMPARISON: NONE HISTORY: Discitis, unspecified, site unspecified CONTRAST: 6.5 mL intravenous Gadavist. TECHNIQUE: Multiplanar, multisequence images of the lumbar spine were acquired. FINDINGS: There is loss of disc height L2-L3. There is approximately 50% superior endplate collapse of L3 and a pproximately 30% loss of inferior endplate collapse of L2. Some posterior wall displacement is eviden t. This has moderate anterior thecal sac impression. Facet hypertrophy is present with posterior late ral thecal sac compression. Some lateral canal narrowing is present. There is crowding through this r egion although AP spinal canal stenosis is not evident on the axial plane images. This appears more n arrowed in the sagittal plane measuring 0.6 cm. Following contrast there is enhancement along the en dplates of L2-L3. Some epidural enhancement appears to be present. A 0.3 mm epidural abscess extendi ng inferiorly may be present posterior to the L3 vertebral level. There is increased T2 signal within the vertebral bodies of L2 and L3. L5-S1: No significant disc bulge or disc herniation. No spinal canal stenosis. No foraminal stenosi s. Mild facet hypertrophy is present. Note is made of a large left nerve root sleeve. L4-L5: No significant disc bulge or disc herniation. No spinal canal stenosis. No foraminal stenosi s. Mild facet hypertrophy is present.. L3-L4: No significant disc bulge or disc herniation. No spinal canal stenosis. No foraminal stenosi s. Facet hypertrophy is present with ligamentum flavum laxity on the left causing mild posterior lat eral thecal sac contact. L2-L3: Discussed above. L1-L2: Minimal disc bulge has anterior thecal sac contact. Facet hypertrophy is present. No spinal ca nal stenosis or neural foraminal stenosis is evident. T12-L1: No significant disc bulge or disc herniation. No spinal canal stenosis. No foraminal stenos is. IMPRESSION: 1. Discitis of the L2-L3 level with 50% loss of the L3 vertebral body height and 30% loss of the L2 v ertebral body height. Small epidural abscess is suspected posterior to the L3 vertebral level. 2. Spinal canal stenosis appears to be present in the sagittal plane from posterior wall displacement into the spinal canal contributing to spinal canal narrowing. This appears stenotic in the sagittal plane at 0.6 cm. A [place] critical message alert has been initiated for Marii Cristina MD via the [employer] Critical Results System on 12/29/2017 7:27 AM. This message alert has been sent to Marii Cristina MD vi a the preferences provided by the clinician for the receipt of Radiology Critical Findings. Message I [id number].
== END | disposition home or self-care (01) ==
LOC: RADMRIMAIN 06:05
PROVIDERS: ATTEND Internal Medicine Infectious Disease
DX: M46.46 Discitis, unspecified, lumbar region (principal); M48.061 Spinal stenosis, lumbar region without neurogenic claudication; G06.1 Intraspinal abscess and granuloma
CPT/HCPCS: 72158; A9581